=== PATIENT | male | born 1945 | race Caucasian/White ===

== ENCOUNTER 2017-01-10 21:29 | Observation (INO) | payer OTHER ==
[2017-01-10 22:17] LABS: BASOPHIL 0.9 % (0-2.0); EOSINOPHIL 5.5 % (0-4.5); MCH 29.7 pg (25.7-33.7); MCHC 33.3 g/dl (32.0-35.9); MEAN CELL VOLUME 89.2 fl (80-96); MEAN PLT VOLUME 10.3 fl (7.5-11.1); NEUTROPHILS 52.7 % (42.8-82.8); PLATELET COUNT 186 K/MM3 (134-434); RDW 14.9 % (11.9-15.9)
--- NOTE | 2017-01-10 22:26 | PDOC ---
History of Present Illness - General History Source: Patient Exam Limitations: No Limitations <Petar Hirsch - Last Filed: 01/10/17 23:30> - General History Source: Patient Exam Limitations: No Limitations <Onel Lazo - Last Filed: 01/11/17 01:52> - General Chief Complaint: Chest Pain Stated Complaint: CHEST PAIN Time Seen by Provider: 01/10/17 21:44 - History of Present Illness Initial Comments: 01/10/17 23:30 The patient is a 71 year old male brought via EMS, with a significant past medical history of COPD, hypercholesterolemia, diabetes, HTN, chronic low back pain and thyroid disease, who presents to the emergency department with chest pain and left arm pain onset at 3pm today. He describes the chest pain as mild, rating it a 3/10 in severity, with radiation to this left upper extremity. He denies any modifying factors. He describes the arm pain as severe, and notes that the pain is exacerbated with movement. He denies lifting any heavy objects or recent falls. The patients last fall was 1 month, when he fell out of bed. He came to the ED for evaluation, got a head CT which was within normal limits and was discharged same day. He reports that the pain causes him to experience dizziness. He notes that he has been having trouble breathing at night and when climbing stairs. He can climb 5 steps before having to stop. He reports that his last stress test was over 5 years ago and was normal. On route EMS gave the patient Nitro and Aspirin 324 mg which the patient reports helped relieve some of the pain. The patient denies shortness of breath, headache. Denies fever, chills, nausea, vomit, diarrhea and constipation. Denies dysuria, frequency, urgency and hematuria. Allergies: Penicillins Past surgical history: Hernia repair (x2) Social history: Former smoker. No alcohol or drug use reported PMD - Dr. Elizabet Wheat (Petar Hirsch) Past History <Petar Hirsch - Last Filed: 01/10/17 23:30> - Past Medical History COPD: Yes Diabetes: Yes (NIDDM) HTN: Yes Thyroid Disease: Yes - Surgical History GI Surgery: Yes (hernia repair x 2) - Psycho/Social/Smoking Cessation Hx Anxiety: No Suicidal Ideation: No Smoking Status: Yes Smoking History: Former smoker Number of Cigarettes Smoked Daily: 5 Information on smoking cessation initiated: No 'Breaking Loose' booklet given: 05/02/13 Hx Alcohol Use: No Drug/Substance Use Hx: No Substance Use Type: None Hx Substance Use Treatment: No <Onel Lazo - Last Filed: 01/11/17 01:52> - Past Medical History Allergies/Adverse Reactions: Allergies Allergy/AdvReac Type Severity Reaction Status Date / Time Penicillins Allergy Unknown Verified 10/19/14 16:44 Home Medications: Ambulatory Orders Amlodipine Besylate [Norvasc -] 5 mg PO DAILY #0 tablet 04/22/13 Hydrochlorothiazide [Hctz -] 12.5 mg PO DAILY #0 cap 04/22/13 Metformin HCl [Glucophage -] 500 mg PO BID #0 tablet 04/22/13 Sitagliptin Phosphate [Januvia] 100 mg PO DAILY #0 tablet 04/22/13 Aspirin [ASA -] 81 mg PO DAILY 01/10/17 Atorvastatin Ca [Lipitor] 10 mg PO HS 01/10/17 Levothyroxine [Synthroid -] 100 mcg PO DAILY 01/10/17 Memantine HCl [Namenda -] 5 mg PO DAILY 01/10/17 Tamsulosin HCl [Flomax] 0.4 mg PO DAILY 01/10/17 Review of Systems - Review of Systems Able to Perform ROS?: Yes <Petar Hirsch - Last Filed: 01/10/17 23:30> <Onel Lazo - Last Filed: 01/11/17 01:52> - Review of Systems Comments:: 01/10/17 23:31 CONSTITUTIONAL: No reported: Fever, Chills, Diaphoresis, Generalized Weakness, Malaise, Loss of Appetite HEENT: No reported: Rhinorrhea, Nasal Congestion, Throat Pain, Throat Swelling, Difficulty Swallowing, Mouth Swelling, Ear Pain, Eye Pain, Visual Changes CARDIOVASCULAR: Reported: Chest pain No reported: Syncope, Palpitations, Irregular Heart Rate, Lightheadedness, Peripheral Edema RESPIRATORY: No reported: Cough, Shortness of Breath, SOB with Exertion, Orthopnea, Wheezing , Stridor, Hemoptysis GASTROINTESTINAL: No reported: Abdominal pain, Abdominal Distension, Nausea, Vomiting, Diarrhea, Constipation, Melena, Hematochezia GENITOURINARY: No reported: Dysuria, Frequency, Urgency, Hesitancy, Flank Pain, Genital Pain MUSCULOSKELETAL: No reported: Myalgia, Arthralgia, Joint Swelling, Back pain, Neck Pain EXTREMITIES: Reported: Left arm pain. SKIN: No reported: Rash, Itching, Pallor HEMEATOLOGIC/IMMUNOLOGIC: No reported: Easy Bleeding, Easy Bruising, Lymphadenopathy, Frequent infections ENDOCRINE: No reported: Unexplained Weight Gain, Unexplained Weight Loss, Heat Intolerance , Cold Intolerance NEUROLOGIC: Reported: Dizziness. No reported: Headache, Focal Weakness, Paresthesias, Unsteady Gait, Seizure, Mental Status Changes, Incontinence PSYCHIATRIC: No reported: Anxiety, Depression (Petar Hirsch) *Physical Exam <Petar Hirsch - Last Filed: 01/10/17 23:30> <Onel Lazo - Last Filed: 01/11/17 01:52> - Vital Signs Last Vital Signs Temp Pulse Resp BP Pulse Ox 97.8 F 67 16 136/86 97 01/10/17 21:48 01/10/17 23:14 01/10/17 23:14 01/10/17 23:14 01/10/17 23:14 - Physical Exam Comments: 01/10/17 23:31 GENERAL: The patient is awake, alert, and fully oriented, Nontoxic - in no acute distress. HEAD: Normocephalic, atraumatic. EYES: extraocular movements intact, sclera anicteric, conjunctiva clear. ENT: Normal voice, Moist mucous membranes. NECK: Normal range of motion, supple LUNGS: (+) Bibasilar rales. Breath sounds equal. No wheezes, no rhonchi. HEART: Regular rate and rhythm, without murmur, rub or gallop. ABDOMEN: Soft, nontender, normoactive bowel sounds. No guarding, no rebound.No CVA tenderness EXTREMITIES: Normal range of motion, no edema. No clubbing or cyanosis. No cords, erythema, or tenderness. NEUROLOGICAL: No facial assymetry, Normal speech, PSYCH: Normal mood, normal affect. SKIN: Warm, Dry, normal turgor (Petar Hirsch) Heart Score/ECG Review <Petar Hirsch - Last Filed: 01/10/17 23:30> - History History: Slightly suspicious - Electrocardiogram EKG: Normal - Age Age: >/= 65 - Risk Factors Risk Factors Heart Score: Yes Hx Hypercholesterolemia, Yes Hx Hypertension, Yes Hx Diabetes Based on the list above the patient has:: >/=3 risk factors or Hx atherosclerotic disease - Troponin Troponin: </= normal limit - Score Heart Score - Total: 4 <Onel Lazo - Last Filed: 01/11/17 01:52> - ECG Impressions Comment:: 01/10/17 22:35 Twelve-lead EKG was performed and reviewed by me. There is normal sinus rhythm with a normal rate. Rate of 73 The axis is normal. The intervals are normal. There is normal R wave progression There are no ST or T wave abnormalities. Impression: Normal twelve-lead EKG (Onel Lazo) ED Treatment Course - LABORATORY CBC & Chemistry Diagram: 01/10/17 22:00 01/10/17 22:00 <Petar Hirsch - Last Filed: 01/10/17 23:30> - LABORATORY CBC & Chemistry Diagram: 01/10/17 22:00 01/10/17 22:00 <Onel Lazo - Last Filed: 01/11/17 01:52> - ADDITIONAL ORDERS Additional order review: Laboratory Results 01/10/17 01/10/17 22:00 22:00 Sodium 138 Potassium 4.2 Chloride 104 Carbon Dioxide 27 Anion Gap 7 L BUN 15 D Creatinine 1.1 Creat Clearance w eGFR > 60 Random Glucose 114 H Calcium 8.5 Total Bilirubin 0.3 AST 40 H ALT 53 D Alkaline Phosphatase 104 Creatine Kinase 199 Creatine Kinase Index 1.4 CK-MB (CK-2) 2.949 Troponin I 0.05 B-Natriuretic Peptide 11.03 Total Protein 7.4 Albumin 3.4 01/10/17 22:00 RBC 4.20 MCV 89.2 MCHC 33.3 RDW 14.9 MPV 10.3 Neutrophils % 52.7 Lymphocytes % 28.2 D Monocytes % 12.7 H Eosinophils % 5.5 H Basophils % 0.9 - RADIOLOGY Radiology Studies Ordered: Category Date Time Status CHEST X-RAY PORTABLE* [RAD] Stat Radiology 01/10/17 21:47 Taken SHOULDER-LEFT [RAD] Stat Radiology 01/10/17 23:09 Taken - Medications Given in the ED: ED Medications Discontinued Medications Generic Name Dose Route Start Last Admin Trade Name Freq PRN Reason Stop Dose Admin Acetaminophen 650 mg 01/10/17 23:09 01/10/17 23:14 Tylenol - PO 01/10/17 23:10 650 mg ONCE ONE Administration Medical Decision Making <Petar Hirsch - Last Filed: 01/10/17 23:30> <Onel Lazo - Last Filed: 01/11/17 01:52> - Medical Decision Making 01/10/17 22:07 71y M hx of htn, hl, hypothyroidism, dm, presents with complaint of L shoulder pain radiatin gto chest starting this afternoon. pain does seem worse wit movement of his arms. no associated sob, diaphoresis, n/v. pt does endorse smome exertional sob. pain improved with ntg/asa by EMS. consider possible ACS will obtain trops, labs ekg pt on monitor technician 01/11/17 01:51 labs rviewed, trop neg x 1 cxr shows mild congestive changes shoulder xray negative for fx or dislocaiton case dw [employer] Faith. agree with observation under dr. Padilla service Case discussed in detail with admitting physician including history, physical exam and ancillary studies. Admitting physician has assumed care for the patient, will follow all pending diagnostics and will complete the evaluation and treatment. (Onel Lazo) *DC/Admit/Observation/Transfer <Petar Hirsch - Last Filed: 01/10/17 23:30> - Discharge Dispostion Admit: Yes <Onel Lazo - Last Filed: 01/11/17 01:52> Diagnosis at time of Disposition: Chest pain Qualifiers: Chest pain type: unspecified Qualified Code(s): R07.9 - Chest pain, unspecified - Discharge Dispostion Condition at time of disposition: Stable Decision to Admit order Date/Time: Decision to Admit Order Category Date Time Status Decision to Admit to Hospital Routine Admission 01/11/17 01:29 Active - Referrals Referrals: Elizabet Wheat MD [Primary Care Provider] - - Attestations Scribe Attestion: 01/10/17 23:31 Documentation prepared by Petar Hirsch, acting as rn medical surgical for Onel Lazo MD (Petar Hirsch)
[2017-01-10 22:39] LABS: ALBUMIN 3.4 g/dl (3.4-5.0); ANION GAP 7 (8-16); BILIRUBIN,TOTAL 0.3 mg/dL (0.2-1.0); CALCIUM 8.5 mg/dL (8.5-10.1); CO2 27 mmol/L (21-32); CREATININE 1.1 mg/dL (0.7-1.3); GLUCOSE,RANDOM 114 mg/dL (74-106); SGOT/AST 40 U/L (15-37); SGPT/ALT 53 U/L (12-78); TOT PROT 7.4 g/dl (6.4-8.2)
[2017-01-10 22:42] LABS: ALK PHOS 104 U/L (45-117); CPK 199 IU/L (39-308); TROPONIN I 0.05 ng/ml (0.00-0.05)
[2017-01-10] MEDS ORDERED: ACETAMINOPHEN 325 MG TABLET (FP) PO ONE (23:09)
[2017-01-10] MEDS ORDERED: ACETAMINOPHEN 325 MG TABLET (FP) ONE (23:11)
[2017-01-11] MEDS ORDERED: FUROSEMIDE 40 MG/4 ML INJECTABLE VIAL IVPUSH ONE (02:16)
[2017-01-11] MEDS ORDERED: FUROSEMIDE 40 MG/4 ML INJECTABLE VIAL ONE (02:34)
--- NOTE | 2017-01-11 03:18 | HP ---
CHIEF COMPLAINT: chest pain, left shoulder pain PCP: Jarret HISTORY OF PRESENT ILLNESS: This is a 71 year old male with a past medical history of HTN, HLD, DM, COPD, hypothyroid who presented to the ED with left elbow, shoulder and chest pain since 3pm. He denies any recent injury to arm. Pt received NTG and 324mg ASA in ambulance and felt better. On exam, pt states that pain is completely resolved. He does report SOB at night when sleeping and when walking up stairs. ER course was notable for: (1) troponin negative (2) CXR consistent with vascular congestion (3) pain completely resolved after tylenol 650 PAST MEDICAL HISTORY: HTN HLD DM COPD hypothyroid PAST SURGICAL HISTORY: hernia repair Social History: Smoking: former Alcohol: occ beer Drugs: none Allergies Penicillins Allergy (Unknown, Verified 10/19/14 16:44) HOME MEDICATIONS: 3 Medication Instructions Recorded Amlodipine Besylate [Norvasc -] 5 mg PO DAILY #0 tablet 04/22/13 Hydrochlorothiazide [Hctz -] 12.5 mg PO DAILY #0 cap 04/22/13 Metformin HCl [Glucophage -] 500 mg PO BID #0 tablet 04/22/13 Sitagliptin Phosphate [Januvia] 100 mg PO DAILY #0 tablet 04/22/13 Aspirin [ASA -] 81 mg PO DAILY 01/10/17 Atorvastatin Ca [Lipitor] 10 mg PO HS 01/10/17 Levothyroxine [Synthroid -] 100 mcg PO DAILY 01/10/17 Memantine HCl [Namenda -] 5 mg PO DAILY 01/10/17 Tamsulosin HCl [Flomax] 0.4 mg PO DAILY 01/10/17 REVIEW OF SYSTEMS CONSTITUTIONAL: Absent: fever, chills, diaphoresis, generalized weakness, malaise, loss of appetite, weight change HEENT: Absent: rhinorrhea, nasal congestion, throat pain, throat swelling, difficulty swallowing, mouth swelling, ear pain, eye pain, visual changes CARDIOVASCULAR: Present: chest pain Absent: syncope, palpitations, irregular heart rate, lightheadedness, peripheral edema RESPIRATORY: Present: shortness of breath, dyspnea with exertion, orthopnea Absent: cough, wheezing, stridor, hemoptysis GASTROINTESTINAL: Absent: abdominal pain, abdominal distension, nausea, vomiting, diarrhea, constipation, melena, hematochezia GENITOURINARY: Absent: dysuria, frequency, urgency, hesitancy, hematuria, flank pain, genital pain MUSCULOSKELETAL: Absent: myalgia, arthralgia, joint swelling, back pain, neck pain SKIN: Absent: rash, itching, pallor HEMATOLOGIC/IMMUNOLOGIC: Absent: easy bleeding, easy bruising, lymphadenopathy, frequent infections ENDOCRINE: Absent: unexplained weight gain, unexplained weight loss, heat intolerance, cold intolerance NEUROLOGIC: Absent: headache, focal weakness or paresthesias, dizziness, unsteady gait, seizure, mental status changes, bladder or bowel incontinence PSYCHIATRIC: Absent: anxiety, depression, suicidal or homicidal ideation, hallucinations. PHYSICAL EXAMINATION Vital Signs - 24 hr 3 01/10/17 01/10/17 21:48 23:14 Temperature 97.8 F Pulse Rate 78 Pulse Rate [ 67 Apical] Respiratory 22 16 Rate Blood Pressure 134/80 Blood Pressure 136/86 [Arm] O2 Sat by Pulse 98 97 Oximetry (%) GENERAL: Awake, alert, and fully oriented, in no acute distress. HEAD: Normal with no signs of trauma. EYES: Pupils equal, round and reactive to light, extraocular movements intact, sclera anicteric, conjunctiva clear. No lid lag. EARS, NOSE, THROAT: Ears normal, nares patent, oropharynx clear without exudates. Moist mucous membranes. NECK: Normal range of motion, supple without lymphadenopathy, JVD, or masses. LUNGS: Crackles R lung field, 1/3 way up, left base. No accessory muscle use. HEART: Regular rate and rhythm, normal S1 and S2 without murmur, rub or gallop. ABDOMEN: Soft, nontender, not distended, normoactive bowel sounds, no guarding, no rebound, no masses. No hepatomegaly or splenomegaly. MUSCULOSKELETAL: Normal range of motion at all joints. No bony deformities or tenderness. No CVA tenderness. UPPER EXTREMITIES: 2+ pulses, warm, well-perfused. No cyanosis. No clubbing. No peripheral edema. no pain on ROM left shoulder or elbow LOWER EXTREMITIES: 2+ pulses, warm, well-perfused. No calf tenderness. No peripheral edema. NEUROLOGICAL: Cranial nerves II-XII intact. Normal speech. Normal gait. PSYCHIATRIC: Cooperative. Good eye contact. Appropriate mood and affect. SKIN: Warm, dry, normal turgor, no rashes or lesions noted, normal capillary refill. Laboratory Results - last 24 hr 3 01/10/17 01/10/17 01/10/17 22:00 22:00 22:00 WBC 8.0 RBC 4.20 Hgb 12.5 Hct 37.5 MCV 89.2 MCH 29.7 MCHC 33.3 RDW 14.9 Plt Count 186 MPV 10.3 Neutrophils % 52.7 Lymphocytes % 28.2 D Monocytes % 12.7 H Eosinophils % 5.5 H Basophils % 0.9 Sodium 138 Potassium 4.2 Chloride 104 Carbon Dioxide 27 Anion Gap 7 L BUN 15 D Creatinine 1.1 Creat Clearance w eGFR > 60 Random Glucose 114 H Calcium 8.5 Total Bilirubin 0.3 AST 40 H ALT 53 D Alkaline Phosphatase 104 Creatine Kinase 199 Creatine Kinase Index 1.4 CK-MB (CK-2) 2.949 Troponin I 0.05 B-Natriuretic Peptide 11.03 Total Protein 7.4 Albumin 3.4 ECG normal sinus rhythma vent rate 73, QTC [address]/T changes Radiology Results Chest xray, portable: final read pending, increased pulmonary vascular congestion, haziness of the costophrenic angles bilaterally ASSESSMENT/PLAN: 71yM with PMH HTN, HLD, DM, COPD, hypothyroid presented to the ED with left sided chest pain, shoulder and elbow pain today. He is being admitted for further observation and testing. Chest pain - Heart score 4, age and risk factors - tele monitoring - trend troponins, neg x1 CHF - CXR and crackles c/w CHF despite normal BNP - lasix 40mg IVP x 1 - consider echo, may be done as outpatient HTN - cont home medications HLD - cont home lipitor, PCP to monitor lipids hypothyroid - cont synthroid DM - hold oral hypoglycemics, sliding scale for now DVT PPX - low risk as expected LOS <48h, reevaluate if LOS is greater FEN - tolerating po fluids - repeat BMP in am with 3rd troponin - diabetic/low sodium diet. Dispo: Pt currently requires inpatient monitoring for management of his emergent condition. Visit type - Emergency Visit Emergency Visit: Yes ED Registration Date: 01/10/17 Care time: The patient presented to the Emergency Department on the above date and was hospitalized for further evaluation of their emergent condition. - New Patient This patient is new to me today: Yes Date on this admission: 01/11/17 - Critical Care Critical Care patient: No
[2017-01-11 04:20] LABS: TROPONIN I 0.06 ng/ml (0.00-0.05)
[2017-01-11 06:27] VITALS: BMI 26.3
[2017-01-11] MEDS ORDERED: INSULIN SLIDING SCALE (NOVOLOG) 1 VIAL SQ SCH (07:00)
[2017-01-11] MEDS ORDERED: LEVOTHYROXINE NA 100 MCG TABLET (FP) PO SCH (07:00)
[2017-01-11] MEDS: HYDROCHLOROTHIAZIDE 12.5 MG CAPSULE (FP) PO SCH (09:09)
[2017-01-11] MEDS: ASPIRIN 81 MG CHEWABLE TABLETS PO SCH (09:09)
[2017-01-11] MEDS: amLODIPine BESYLATE 5 MG TABLET (FP) PO SCH (09:09)
[2017-01-11] MEDS: MEMANTINE HCL 5 MG TABLET (UD) PO SCH (09:09)
[2017-01-11] MEDS: TAMSULOSIN HCL 0.4 MG CAP.ER.24H (FP) PO SCH (09:09)
--- NOTE | 2017-01-11 09:22 | CON.CARD ---
Consult Consult Specialty:: Cardiology for [facility] Referred by:: Hospitalist Reason for Consultation:: chest pain and CHF - History of Present Illness Chief Complaint: HURLEY x 3 months and Left shoulder pain History of Present Illness: 71M HTN, HL, DM presents to ER w/ 3 months progressive HURLEY and several days of left shoulder pain radiating to chest. HE describes SOB w/ exertion, no exertional CP. No palps. Occasional LE edema. His left shoulder pain seems musculoskeletal, described as worse with positional change. CXR shows cardiomegaly and increased PVC. - History Source History Provided By: Patient (in Bulgarian) Limitations to Obtaining History: No Limitations - Past Medical History Cardio/Vascular: Yes: HTN, Hyperlipdemia, Other (mitral regurgitation) Pulmonary: Yes: COPD, Pneumonia (hx of) Endocrine: Yes: Diabetes Mellitus, Hypothyroidism - Alcohol/Substance Use Hx Alcohol Use: No - Smoking History Smoking history: Former smoker Have you smoked in the past 12 months: Yes Aproximately how many cigarettes per day: 20 If you are a former smoker, when did you quit?: 06/2016 - Social History Usual Living Arrangement: Alone ADL: Independent History of Recent Travel: No Home Medications - Allergies Allergies/Adverse Reactions: Allergies Allergy/AdvReac Type Severity Reaction Status Date / Time Penicillins Allergy Unknown Verified 10/19/14 16:44 - Home Medications Home Medications: Ambulatory Orders Amlodipine Besylate [Norvasc -] 5 mg PO DAILY #0 tablet 04/22/13 Hydrochlorothiazide [Hctz -] 12.5 mg PO DAILY #0 cap 04/22/13 Metformin HCl [Glucophage -] 500 mg PO BID #0 tablet 04/22/13 Sitagliptin Phosphate [Januvia] 100 mg PO DAILY #0 tablet 04/22/13 Aspirin [ASA -] 81 mg PO DAILY 01/10/17 Atorvastatin Ca [Lipitor] 10 mg PO HS 01/10/17 Levothyroxine [Synthroid -] 100 mcg PO DAILY 01/10/17 Memantine HCl [Namenda -] 5 mg PO DAILY 01/10/17 Tamsulosin HCl [Flomax] 0.4 mg PO DAILY 01/10/17 Family Disease History - Family Disease History Family History: Unremarkable (non contributory) Review of Systems Findings/Remarks: see HPI - Review of Systems Cardiovascular: reports: Chest Pain, Edema, Shortness of Breath Respiratory: reports: Exercise Intolerance, SOB Gastrointestinal: reports: No Symptoms Neurological: reports: No Symptoms Endocrine: reports: No Symptoms Hematology/Lymphatic: reports: No Symptoms Psychiatric: reports: No Symptoms - Risk Factors Known Risk Factors: Yes: Diabetes Mellitus, Hypercholesterolemia, Hypertension, Smoking Vital Signs: Vital Signs Temperature 97.6 F 01/11/17 06:18 Pulse Rate 70 01/11/17 06:18 Respiratory Rate 18 01/11/17 06:18 Blood Pressure 127/78 01/11/17 06:18 O2 Sat by Pulse Oximetry (%) 95 01/11/17 03:00 Constitutional: Yes: No Distress, Calm Respiratory: Yes: Other (bibasilar rales) Gastrointestinal: Yes: Soft JVD: No Carotid Bruit: No Heart Sounds: Yes: S1, S2 (RRR, no murmurs) Edema: No Peripheral Pulses WNL: Yes Neurological: Yes: Alert, Oriented ...Motor Strength: WNL Psychiatric: Yes: Alert, Oriented - Other Data Labs, Other Data: Troponin, BNP 01/11/17 03:35 Troponin I 0.06 H Troponin, BNP 01/11/17 03:35 Troponin I 0.06 H Laboratory Tests 01/10/17 01/10/17 01/11/17 22:00 22:00 03:35 WBC 8.0 Hgb 12.5 Plt Count 186 Creatine Kinase 199 217 Troponin I 0.05 0.06 H VALERIE 73bpm/ no acute ST changes Echo: Pending Imaging - Results Chest X-ray: Image Reviewed (chf) EKG: Image Reviewed Problem List - Problems (1) Chest pain Code(s): R07.9 - CHEST PAIN, UNSPECIFIED Qualifiers: Chest pain type: unspecified Qualified Code(s): R07.9 - Chest pain, unspecified (2) CHF (congestive heart failure) Code(s): I50.9 - HEART FAILURE, UNSPECIFIED Qualifiers: Congestive heart failure type: unspecified congestive heart failure type (3) Abnormal CXR Code(s): R93.8 - ABNORMAL FINDINGS ON DIAGNOSTIC IMAGING OF BODY STRUCTURES (4) Diabetes Code(s): E11.9 - TYPE 2 DIABETES MELLITUS WITHOUT COMPLICATIONS Qualifiers: Diabetes mellitus type: type 2 Assessment/Plan IMP: Dyspnea on exertion Chest pain syndrome with typical and atypical features Multiple cardiac risk factors REC: 1. Dyspnea: -clinically improved after one dose IV Lasix, and CXR appears to show increased PVC -Continue PO Lasix -Chest CT without contrast to assess for parenchymal lung dz (?ILD): BNP of 11 is puzzling in light of clinical response to lasix and what appears to be radiographic CHF -Obtain 3rd cardiac enzyme -Echo for EF assessment 2. Chest pain:multiple CV risk factors. -Patient's description appears to be somewhat atypical with primarily shoulder pain, worse with positional change. -Has not had exertional CP -ECG without ischemic changes -Cont ASA -Echo -Complete MIL[place]RO -Will need ischemic evaluation prior to discharge
[2017-01-11 09:52] LABS: BASOPHIL 0.8 % (0-2.0); EOSINOPHIL 5.3 % (0-4.5); MCH 29.2 pg (25.7-33.7); MCHC 32.9 g/dl (32.0-35.9); MEAN CELL VOLUME 88.6 fl (80-96); MEAN PLT VOLUME 9.8 fl (7.5-11.1); NEUTROPHILS 57.3 % (42.8-82.8); PLATELET COUNT 178 K/MM3 (134-434); RDW 15.1 % (11.9-15.9)
[2017-01-11] MEDS ORDERED: FUROSEMIDE 40 MG/4 ML INJECTABLE VIAL IVPB SCH (10:00)
[2017-01-11 10:23] LABS: ALBUMIN 3.6 g/dl (3.4-5.0); ALK PHOS 110 U/L (45-117); ANION GAP 7 (8-16); BILIRUBIN,TOTAL 0.3 mg/dL (0.2-1.0); CALCIUM 9.3 mg/dL (8.5-10.1); CO2 29 mmol/L (21-32); CREATININE 1.1 mg/dL (0.7-1.3); GLUCOSE,RANDOM 153 mg/dL (74-106); SGOT/AST 48 U/L (15-37); SGPT/ALT 59 U/L (12-78); TOT PROT 7.9 g/dl (6.4-8.2)
[2017-01-11 10:24] LABS: ANION GAP 8 (8-16); CO2 29 mmol/L (21-32); CREATININE 1.1 mg/dL (0.7-1.3); GLUCOSE,RANDOM 148 mg/dL (74-106); MAGNESIUM 2.1 mg/dL (1.8-2.4); PHOSPHOROUS 3.3 mg/dL (2.5-4.9)
[2017-01-11 10:27] LABS: CPK 196 IU/L (39-308); TROPONIN I 0.06 ng/ml (0.00-0.05)
--- NOTE | 2017-01-11 10:41 | PN ---
Physical Exam: SUBJECTIVE: Patient seen and examined at the bedside. Denies chest pain now but still has left shoulder pain. Denies shortness of breath, tolerating room air OBJECTIVE: NSR on property assessment monitor Shoulder xray negative for fracture Trop: 0.05>0.06>0.06 lipid panel and hmga1c pending Vital Signs Period Temp Pulse Resp BP Sys/Loera Pulse Ox Last 24 Hr 97.6 F-98 F 68-103 18-18 127-138/74-87 92-96 GENERAL: The patient is awake, alert, and fully oriented, in no acute distress. HEAD: Normal with no signs of trauma. EYES: PERRL, extraocular movements intact, sclera anicteric, conjunctiva clear. No ptosis. ENT: Ears normal, nares patent, oropharynx clear without exudates, moist mucous membranes. NECK: Trachea midline, full range of motion, supple. LUNGS: +crackles on right lung base, left lung clear to auscultation HEART: Regular rate and rhythm, NSR on property assessment monitor ABDOMEN: Soft, nontender, nondistended, normoactive bowel sounds, no guarding, no rebound, no hepatosplenomegaly, no masses. EXTREMITIES: trace non pitting edema on both ankles NEUROLOGICAL: Normal speech, gait not observed. PSYCH: Normal mood, normal affect. SKIN: Warm, dry, normal turgor, no rashes or lesions noted Laboratory Results - last 24 hr 01/11/17 01/11/17 01/11/17 03:35 07:04 09:40 WBC 7.0 RBC 4.62 Hgb 13.5 Hct 40.9 MCV 88.6 MCH 29.2 MCHC 32.9 RDW 15.1 Plt Count 178 MPV 9.8 Neutrophils % 57.3 Lymphocytes % 25.8 Monocytes % 10.8 H Eosinophils % 5.3 H Basophils % 0.8 Sodium Potassium Chloride Carbon Dioxide Anion Gap BUN Creatinine Creat Clearance w eGFR POC Glucometer 108 Random Glucose Calcium Phosphorus Magnesium Total Bilirubin AST ALT Alkaline Phosphatase Creatine Kinase 217 Creatine Kinase Index 1.3 CK-MB (CK-2) 2.898 Troponin I 0.06 H Total Protein Albumin 01/11/17 01/11/17 09:40 09:40 WBC RBC Hgb Hct MCV MCH MCHC RDW Plt Count MPV Neutrophils % Lymphocytes % Monocytes % Eosinophils % Basophils % Sodium 136 135 L Potassium 4.1 4.1 Chloride 99 99 Carbon Dioxide 29 29 Anion Gap 8 7 L BUN 17 17 Creatinine 1.1 1.1 Creat Clearance w eGFR > 60 POC Glucometer Random Glucose 148 H D 153 H Calcium 9.0 9.3 Phosphorus 3.3 Magnesium 2.1 Total Bilirubin 0.3 AST 48 H ALT 59 Alkaline Phosphatase 110 Creatine Kinase 196 Creatine Kinase Index CK-MB (CK-2) Troponin I 0.06 H Total Protein 7.9 Albumin 3.6 Active Medications Generic Name Dose Route Start Last Admin Trade Name Macario PRN Reason Stop Dose Admin Amlodipine Besylate 5 mg 01/11/17 10:00 01/11/17 09:09 Norvasc - PO 5 mg DAILY YAEL Administration Aspirin 81 mg 01/11/17 10:00 01/11/17 09:09 Asa - PO 81 mg DAILY YAEL Administration Atorvastatin Calcium 10 mg 01/11/17 22:00 Lipitor - PO HS [facility] Furosemide 40 mg 01/11/17 10:00 Lasix - PO DAILY [facility] Hydrochlorothiazide 12.5 mg 01/11/17 10:00 01/11/17 09:09 Hctz - PO 12.5 mg DAILY YAEL Administration Insulin Aspart 1 vial 01/11/17 10:38 Novolog Vial Sliding Scale - SQ TIDAC [facility] Protocol Levothyroxine Sodium 100 mcg 01/11/17 07:00 01/11/17 07:05 Synthroid - PO 100 mcg DAILY@0700 [facility] Administration Memantine 5 mg 01/11/17 10:00 01/11/17 09:09 Namenda - PO 5 mg DAILY YAEL Administration Tamsulosin HCl 0.4 mg 01/11/17 08:30 01/11/17 09:09 Flomax - PO 0.4 mg DAILY@0830 [facility] Administration ASSESSMENT/PLAN: Patient is a 71 year old male with a significant past medical history of hypertension, hyperlipidemia, DM, COPD, and hypothyroidism. He presented to the ER on 01/11/2017 with complaints of left sided shoulder and elbow pain that radiated to this chest. He is admitted under observation for further testing. Imaging: Chest CT 01/11/2017: Interstitial lung disease, +cardiomegaly, cannot exclude superimposed CHF. Chest xray 01/10/2017: Large heart with extensive congestive changes and some pleural fluid Cardiology: Chest pain - acute A/P: Chest pain from left shoulder to left chest Multiple risk factors: age, hypertensive hx, diabetes, hypothyroidism and hyperlipidemia Continue telemonitoring Troponins 0.05 0.06>0.06 EKG NSR with no significant changes from previous BNP not elevated Monitor daily weights and intake and output Congestive Heart Failure A/P: Increased congestion on chest xray Started on Lasix 40mg IV daily Echo ordered by cardiology Hypertension A/P: On Amlodopine 5mg daily, HCTZ 12.5 daily Monitor BP Hyperlipidemia A/P: Lipid panel reviewed, on home Lipitor 10mg Pulmonary: Shortness of breath - acute A/P: Chest xray with evidence of congestion Chest CT shows interstitial lung disease, +cardiomegaly Cannot exclude superimposed CHF Pulmonary following Endocrine: Hypothyroid A/P: On syntrhoid 100mcg at home, last TSH on 11/29/16 was 9.72, TSH today 6.94 Increased Synthroid to 112mcg daily, will need repeat TSH in 6 weeks Diabetes Mellitus A/P: On sliding scale, monitor BGMs hmga1c 7.2, follow up outpatient with PCP, Prophylaxis: GI: deferred DVT: SCDs, ambulation F.E.N. Fluids: tolerating PO Electrolytes: monitor on Lasix Nutrition: diabetic low sodium diet Disposition: Pt currently requires inpatient monitoring for management of his emergent condition. Full Code Visit type - Emergency Visit Emergency Visit: Yes ED Registration Date: 01/11/17 Care time: The patient presented to the Emergency Department on the above date and was hospitalized for further evaluation of their emergent condition. - New Patient This patient is new to me today: Yes Date on this admission: 01/11/17 - Critical Care Critical Care patient: No - Discharge Referral Referred to [facility] No
[2017-01-11] MEDS ORDERED: ALBUTEROL SO4 2.5/IPRATROPIUM 0.5 INH SOL 3 ML VIAL.NEB. NEB PRN (10:45)
[2017-01-11] MEDS: FUROSEMIDE 40 MG TABLET (FP) PO SCH (10:47)
[2017-01-11 11:31] LABS: CHOLESTEROL 154 mg/dL (50-200); LDL CHOLESTEROL (ONLY SJRH) 99 mg/dL (5-100)
[2017-01-11] MEDS: LIDOCAINE 5% TOPICAL PATCH TP SCH (12:34)
[2017-01-11] MEDS: INSULIN SLIDING SCALE (NOVOLOG) 1 VIAL SQ SCH ×2 (12:35→17:17)
--- NOTE | 2017-01-11 13:26 | EKG ---
Test Reason : Blood Pressure : / mmHG Vent. Rate : 073 BPM Atrial Rate : 073 BPM P-R Int : 208 ms QRS Dur : 088 ms QT Int : 372 ms P-R-T Axes : 046 009 042 degrees QTc Int : 409 ms NORMAL SINUS RHYTHM NORMAL ECG WHEN COMPARED WITH ECG OF 02-MAY-2013 17:49, NO SIGNIFICANT CHANGE WAS FOUND Confirmed by TRUE GUEVARA MD ([id number]) on 01/11/2017 1:26:11 PM Referred By: Confirmed By:TRUE GUEVARA MD
--- NOTE | 2017-01-11 15:46 | CON.PULM ---
Consult Consult Specialty:: PULM/CCM Referred by:: DAWN Reason for Consultation:: SOB - History of Present Illness Chief Complaint: SOB History of Present Illness: 71 M, with listed medical history. COPD from previous smoking. Previous imaging from [facility] in 2014 revealed diffuse ILD. With the help of a mortgage lender the patient informed me that he has never been told that he has an issue with is lungs. 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 No previous history of lung biopsy. No fever or chills. No hemoptysis. CT : Diffuse ILD somewhat progressed from CT in 2015. - History Source History Provided By: Patient Limitations to Obtaining History: Language Barrier - Past Medical History Cardio/Vascular: Yes: HTN, Hyperlipdemia, Other (mitral regurgitation) Pulmonary: Yes: COPD, Pneumonia (hx of) Endocrine: Yes: Diabetes Mellitus, Hypothyroidism - Alcohol/Substance Use Hx Alcohol Use: No - Smoking History Smoking history: Former smoker Have you smoked in the past 12 months: Yes Aproximately how many cigarettes per day: 20 If you are a former smoker, when did you quit?: 06/2016 - Social History Usual Living Arrangement: Alone ADL: Independent History of Recent Travel: No Home Medications - Allergies Allergies/Adverse Reactions: Allergies Allergy/AdvReac Type Severity Reaction Status Date / Time Penicillins Allergy Unknown Verified 10/19/14 16:44 - Home Medications Home Medications: Ambulatory Orders Amlodipine Besylate [Norvasc -] 5 mg PO DAILY #0 tablet 04/22/13 Hydrochlorothiazide [Hctz -] 12.5 mg PO DAILY #0 cap 04/22/13 Metformin HCl [Glucophage -] 500 mg PO BID #0 tablet 04/22/13 Sitagliptin Phosphate [Januvia] 100 mg PO DAILY #0 tablet 04/22/13 Aspirin [ASA -] 81 mg PO DAILY 01/10/17 Atorvastatin Ca [Lipitor] 10 mg PO HS 01/10/17 Levothyroxine [Synthroid -] 100 mcg PO DAILY 01/10/17 Memantine HCl [Namenda -] 5 mg PO DAILY 01/10/17 Tamsulosin HCl [Flomax] 0.4 mg PO DAILY 01/10/17 Review of Systems - Review of Systems Constitutional: denies: Chills, Fever, Loss of Appetite, Malaise, Night Sweats, Unintentional Wgt. Loss Eyes: reports: No Symptoms HENT: reports: No Symptoms Neck: reports: No Symptoms Cardiovascular: reports: Shortness of Breath. denies: Chest Pain, Edema, Palpitations Respiratory: reports: Cough, SOB, SOB on Exertion. denies: Hemoptysis, Wheezing Gastrointestinal: reports: No Symptoms Genitourinary: reports: No Symptoms Breasts: reports: No Symptoms Reported Musculoskeletal: reports: No Symptoms Integumentary: reports: No Symptoms Neurological: reports: No Symptoms Endocrine: reports: No Symptoms Hematology/Lymphatic: reports: No Symptoms Psychiatric: reports: No Symptoms Physical Exam Vital Sings: Vital Signs Temperature 97.9 F 01/11/17 14:00 Pulse Rate 81 01/11/17 14:00 Respiratory Rate 20 01/11/17 14:00 Blood Pressure 109/67 01/11/17 14:00 O2 Sat by Pulse Oximetry (%) 96 01/11/17 10:18 Constitutional: Yes: No Distress, Calm Eyes: Yes: Conjunctiva Clear, EOM Intact HENT: Yes: Atraumatic, Normocephalic Neck: Yes: Supple, Trachea Midline Cardiovascular: Yes: Regular Rate and Rhythm Respiratory: Yes: Cough, Rales, Other (coarse crackles ). No: Accessory Muscle Use, Stridor, Tachypnea, Wheezes ...Inspection: Yes: WNL ...Clubbing: Yes Gastrointestinal: Yes: Normal Bowel Sounds, Soft Renal/: Yes: WNL Breast(s): Yes: WNL Musculoskeletal: Yes: WNL Extremities: Yes: WNL Edema: No Peripheral Pulses WNL: Yes Integumentary: Yes: WNL Neurological: Yes: WNL, Alert, Oriented ...Motor Strength: WNL Psychiatric: Yes: WNL, Alert, Oriented Labs: CBC, BMP 01/11/17 09:40 01/11/17 09:40 Imaging - Results Cat Scan: Report Reviewed, Image Reviewed Problem List - Problems (1) Abnormal CXR Code(s): R93.8 - ABNORMAL FINDINGS ON DIAGNOSTIC IMAGING OF BODY STRUCTURES (2) CHF (congestive heart failure) Code(s): I50.9 - HEART FAILURE, UNSPECIFIED Qualifiers: Congestive heart failure type: unspecified congestive heart failure type (3) Diabetes Code(s): E11.9 - TYPE 2 DIABETES MELLITUS WITHOUT COMPLICATIONS Qualifiers: Diabetes mellitus type: type 2 (4) ILD (interstitial lung disease) Code(s): J84.9 - INTERSTITIAL PULMONARY DISEASE, UNSPECIFIED Assessment/Plan Diuresis as needed (likely has Pulm HTN -> Pulmonary vascular congestion) O2 as needed Patient with a chronic ILD. Seems no previous work up has been done. He is currently ambulating in the hallways and reports that he feels better since admission. There is no acute indication for systemic steroids at this time. He O2 saturation ranges from 92 to 96, so he does not require home O2. There is no Pulmonary contraindication for D/C and continue his ILD work up as an outpatient. Will follow if he remains hospitalized Dr Martinez
[2017-01-11] MEDS: ATORVASTATIN CA 10 MG TABLET (FP) PO SCH (21:23)
[2017-01-11] MEDS: LIDOCAINE PATCH REMOVAL MC SCH (21:24)
[2017-01-12] MEDS ORDERED: INSULIN (NOVOLOG) ASPART 100 UNITS/ML 10ML VIAL ONE ×2 (05:45→17:27)
[2017-01-12] MEDS: LEVOTHYROXINE NA 112 MCG TABLET (FP) PO SCH (06:14)
[2017-01-12] MEDS: INSULIN SLIDING SCALE (NOVOLOG) 1 VIAL SQ SCH ×4 (06:14→17:08)
[2017-01-12 07:22] LABS: BASOPHIL 0.4 % (0-2.0); EOSINOPHIL 4.5 % (0-4.5); MCH 29.3 pg (25.7-33.7); MCHC 32.8 g/dl (32.0-35.9); MEAN CELL VOLUME 89.3 fl (80-96); MEAN PLT VOLUME 10.3 fl (7.5-11.1); NEUTROPHILS 58.3 % (42.8-82.8); PLATELET COUNT 184 K/MM3 (134-434); RDW 14.8 % (11.9-15.9); WHITE BLOOD COUNT 9.3 K/mm3 (4.0-10.0)
[2017-01-12 07:44] LABS: ANION GAP 8 (8-16); CALCIUM 9.2 mg/dL (8.5-10.1); CO2 29 mmol/L (21-32); CREATININE 1.4 mg/dL (0.7-1.3); GLUCOSE,RANDOM 118 mg/dL (74-106); MAGNESIUM 2.4 mg/dL (1.8-2.4)
--- NOTE | 2017-01-12 08:59 | PN ---
Progress Note, Physician Chief Complaint: feeling better CT clarifies that he does have ILD - Current Medication List Current Medications: Active Medications Albuterol/Ipratropium (Duoneb -) 1 amp NEB Q6H PRN PRN Reason: SHORTNESS OF BREATH Amlodipine Besylate (Norvasc -) 5 mg PO DAILY [facility] Last Admin: 01/11/17 09:09 Dose: 5 mg Aspirin (Asa -) 81 mg PO DAILY [facility] Last Admin: 01/11/17 09:09 Dose: 81 mg Atorvastatin Calcium (Lipitor -) 10 mg PO HS [facility] Last Admin: 01/11/17 21:23 Dose: 10 mg Furosemide (Lasix -) 40 mg PO DAILY [facility] Last Admin: 01/11/17 10:47 Dose: 40 mg Hydrochlorothiazide (Hctz -) 12.5 mg PO DAILY [facility] Last Admin: 01/11/17 09:09 Dose: 12.5 mg Insulin Aspart (Novolog Vial Sliding Scale -) 1 vial SQ TIDAC [facility] PRN Reason: Protocol Last Admin: 01/12/17 06:14 Dose: Not Given Levothyroxine Sodium (Synthroid -) 112 mcg PO DAILY@0700 [facility] Last Admin: 01/12/17 06:14 Dose: 112 mcg Lidocaine (Lidoderm Patch -) 1 patch TP DAILY [facility] Last Admin: 01/11/17 12:34 Dose: 1 patch Memantine (Namenda -) 5 mg PO DAILY [facility] Last Admin: 01/11/17 09:09 Dose: 5 mg Miscellaneous (Lidoderm Patch Removal) 1 each MC DAILY@2200 [facility] Last Admin: 01/11/17 21:24 Dose: 1 each Tamsulosin HCl (Flomax -) 0.4 mg PO DAILY@0830 [facility] Last Admin: 01/11/17 09:09 Dose: 0.4 mg - Objective Vital Signs: Vital Signs Temperature 98 F 01/12/17 06:00 Pulse Rate 78 01/12/17 06:00 Respiratory Rate 18 01/12/17 06:00 Blood Pressure 134/75 01/12/17 06:00 O2 Sat by Pulse Oximetry (%) 98 01/11/17 22:21 Constitutional: Yes: Calm Cardiovascular: Yes: Regular Rate and Rhythm Respiratory: Yes: Other (dry rales) Gastrointestinal: Yes: Soft Edema: No (clubbing of fingers) Neurological: Yes: Alert Labs: CBC, BMP 01/12/17 05:35 01/12/17 05:35 Laboratory Tests 01/12/17 01/12/17 05:35 05:35 WBC 9.3 D Hct 43.5 Plt Count 184 Sodium 136 Potassium 4.3 BUN 28 H D Creatinine 1.4 H D Magnesium 2.4 - ....Imaging EKG: Image Reviewed (NSR w/ one nocturnal episode of Wenkebach) Problem List - Problems (1) Chest pain Code(s): R07.9 - CHEST PAIN, UNSPECIFIED Qualifiers: Chest pain type: unspecified Qualified Code(s): R07.9 - Chest pain, unspecified (2) CHF (congestive heart failure) Code(s): I50.9 - HEART FAILURE, UNSPECIFIED Qualifiers: Congestive heart failure type: unspecified congestive heart failure type (3) Abnormal CXR Code(s): R93.8 - ABNORMAL FINDINGS ON DIAGNOSTIC IMAGING OF BODY STRUCTURES (4) Diabetes Code(s): E11.9 - TYPE 2 DIABETES MELLITUS WITHOUT COMPLICATIONS Qualifiers: Diabetes mellitus type: type 2 Assessment/Plan IMP: Dyspnea on exertion probably predominantly due to ILD with mild superimposed CHF Chest pain syndrome with typical and atypical features Multiple cardiac risk factors REC: 1. Dyspnea: -Continue PO Lasix -Chest CT confirms moderate ILD -Echo for EF assessment and to assess for PHTN 2. Chest pain:multiple CV risk factors. -Patient's description appears to be somewhat atypical with primarily shoulder pain, worse with positional change. -Has not had exertional CP -ECG without ischemic changes -Cont ASA -Echo -Stress MIBI in AM
[2017-01-12] MEDS: ASPIRIN 81 MG CHEWABLE TABLETS PO SCH (09:35)
[2017-01-12] MEDS: MEMANTINE HCL 5 MG TABLET (UD) PO SCH (09:35)
[2017-01-12] MEDS: amLODIPine BESYLATE 5 MG TABLET (FP) PO SCH (09:35)
[2017-01-12] MEDS: TAMSULOSIN HCL 0.4 MG CAP.ER.24H (FP) PO SCH (09:35)
[2017-01-12] MEDS: HYDROCHLOROTHIAZIDE 12.5 MG CAPSULE (FP) PO SCH (09:35)
[2017-01-12] MEDS: FUROSEMIDE 40 MG TABLET (FP) PO SCH (09:35)
[2017-01-12] MEDS: LIDOCAINE 5% TOPICAL PATCH TP SCH (09:35)
--- NOTE | 2017-01-12 14:53 | PN ---
Progress Note (short form) - Note Progress Note: Ambulating in the hallway. No CP. SOB is better. Intake & Output 01/09/17 01/10/17 01/11/17 01/12/17 23:59 23:59 23:59 23:59 Intake Total 130 600 Balance 130 600 Weight 165 lb 163 lb 4 oz Last Vital Signs Temp Pulse Resp BP Pulse Ox 97.3 F L 89 20 139/80 98 01/12/17 14:44 01/12/17 14:44 01/12/17 14:44 01/12/17 14:44 01/12/17 10:00 Active Medications Albuterol/Ipratropium (Duoneb -) 1 amp NEB Q6H PRN PRN Reason: SHORTNESS OF BREATH Amlodipine Besylate (Norvasc -) 5 mg PO DAILY [facility] Last Admin: 01/12/17 09:35 Dose: 5 mg Aspirin (Asa -) 81 mg PO DAILY [facility] Last Admin: 01/12/17 09:35 Dose: 81 mg Atorvastatin Calcium (Lipitor -) 10 mg PO HS [facility] Last Admin: 01/11/17 21:23 Dose: 10 mg Furosemide (Lasix -) 40 mg PO DAILY [facility] Last Admin: 01/12/17 09:35 Dose: 40 mg Hydrochlorothiazide (Hctz -) 12.5 mg PO DAILY [facility] Last Admin: 01/12/17 09:35 Dose: 12.5 mg Insulin Aspart (Novolog Vial Sliding Scale -) 1 vial SQ TIDAC [facility] PRN Reason: Protocol Last Admin: 01/12/17 12:51 Dose: Not Given Levothyroxine Sodium (Synthroid -) 112 mcg PO DAILY@0700 [facility] Last Admin: 01/12/17 06:14 Dose: 112 mcg Lidocaine (Lidoderm Patch -) 1 patch TP DAILY [facility] Last Admin: 01/12/17 09:35 Dose: 1 patch Memantine (Namenda -) 5 mg PO DAILY [facility] Last Admin: 01/12/17 09:35 Dose: 5 mg Miscellaneous (Lidoderm Patch Removal) 1 each MC DAILY@2200 [facility] Last Admin: 01/11/17 21:24 Dose: 1 each Tamsulosin HCl (Flomax -) 0.4 mg PO DAILY@0830 [facility] Last Admin: 01/12/17 09:35 Dose: 0.4 mg Constitutional: Yes: No Distress, Calm Eyes: Yes: Conjunctiva Clear, EOM Intact HENT: Yes: Atraumatic, Normocephalic Neck: Yes: Supple, Trachea Midline Cardiovascular: Yes: Regular Rate and Rhythm Respiratory: Yes: Cough, Rales / coarse crackles. No: Accessory Muscle Use, Stridor, Tachypnea, Wheezes ...Inspection: Yes: WNL ...Clubbing: Yes Gastrointestinal: Yes: Normal Bowel Sounds, Soft Renal/: Yes: WNL Breast(s): Yes: WNL Musculoskeletal: Yes: WNL Extremities: Yes: WNL Edema: No Peripheral Pulses WNL: Yes Integumentary: Yes: WNL Neurological: Yes: WNL, Alert, Oriented ...Motor Strength: WNL Psychiatric: Yes: WNL, Alert, Oriented Labs: Laboratory Results - last 24 hr 01/11/17 01/12/17 01/12/17 17:10 05:35 05:35 WBC 9.3 D RBC 4.87 Hgb 14.3 Hct 43.5 MCV 89.3 MCH 29.3 MCHC 32.8 RDW 14.8 Plt Count 184 MPV 10.3 Neutrophils % 58.3 Lymphocytes % 22.6 Monocytes % 14.2 H Eosinophils % 4.5 Basophils % 0.4 Sodium 136 Potassium 4.3 Chloride 99 Carbon Dioxide 29 Anion Gap 8 BUN 28 H D Creatinine 1.4 H D POC Glucometer 70 Random Glucose 118 H D Calcium 9.2 Magnesium 2.4 01/12/17 01/12/17 06:12 11:34 WBC RBC Hgb Hct MCV MCH MCHC RDW Plt Count MPV Neutrophils % Lymphocytes % Monocytes % Eosinophils % Basophils % Sodium Potassium Chloride Carbon Dioxide Anion Gap BUN Creatinine POC Glucometer 114 86 Random Glucose Calcium Magnesium Problem List - Problems (1) Abnormal CXR Code(s): R93.8 - ABNORMAL FINDINGS ON DIAGNOSTIC IMAGING OF BODY STRUCTURES (2) CHF (congestive heart failure) Code(s): I50.9 - HEART FAILURE, UNSPECIFIED Qualifiers: Congestive heart failure type: unspecified congestive heart failure type (3) Diabetes Code(s): E11.9 - TYPE 2 DIABETES MELLITUS WITHOUT COMPLICATIONS Qualifiers: Diabetes mellitus type: type 2 (4) ILD (interstitial lung disease) Code(s): J84.9 - INTERSTITIAL PULMONARY DISEASE, UNSPECIFIED Assessment/Plan Diuresis as needed (likely has Pulm HTN -> Pulmonary vascular congestion) O2 as needed Patient with a chronic ILD. Seems no previous work up has been done. There is no acute indication for systemic steroids at this time. He O2 saturation ranges from 92 to 96, so he does not require home O2. For Stress test in the AM. Dr Martinez Problem List - Problems (1) Abnormal CXR Code(s): R93.8 - ABNORMAL FINDINGS ON DIAGNOSTIC IMAGING OF BODY STRUCTURES (2) CHF (congestive heart failure) Code(s): I50.9 - HEART FAILURE, UNSPECIFIED Qualifiers: Congestive heart failure type: unspecified congestive heart failure type (3) Diabetes Code(s): E11.9 - TYPE 2 DIABETES MELLITUS WITHOUT COMPLICATIONS Qualifiers: Diabetes mellitus type: type 2 (4) ILD (interstitial lung disease) Code(s): J84.9 - INTERSTITIAL PULMONARY DISEASE, UNSPECIFIED
--- NOTE | 2017-01-12 16:32 | PN ---
Physical Exam: SUBJECTIVE: Patient seen and examined, was sitting up, eating lunch, and seen again in the solarium with is family member. He states that he is able to ambulate without shortness of breath. Denies chest pain. OBJECTIVE: Vital Signs Period Temp Pulse Resp BP Sys/Loera Pulse Ox Last 24 Hr 97.3 F-98.8 F 77-89 16-20 114-144/65-85 98-98 GENERAL: The patient is awake, alert, and fully oriented, in no acute distress. HEAD: Normal with no signs of trauma. EYES: PERRL, extraocular movements intact, sclera anicteric, conjunctiva clear. No ptosis. ENT: Ears normal, nares patent, oropharynx clear without exudates, moist mucous membranes. NECK: Trachea midline, full range of motion, supple. LUNGS: +crackles on right lung base, left lung clear to auscultation HEART: Regular rate and rhythm, NSR on cardiac catheterization technician ABDOMEN: Soft, nontender, nondistended, normoactive bowel sounds, no guarding, no rebound, no hepatosplenomegaly, no masses. EXTREMITIES: trace non pitting edema on both ankles NEUROLOGICAL: Normal speech, gait not observed. PSYCH: Normal mood, normal affect. SKIN: Warm, dry, normal turgor, no rashes or lesions noted Laboratory Results - last 24 hr 01/11/17 01/12/17 01/12/17 17:10 05:35 05:35 WBC 9.3 D RBC 4.87 Hgb 14.3 Hct 43.5 MCV 89.3 MCH 29.3 MCHC 32.8 RDW 14.8 Plt Count 184 MPV 10.3 Neutrophils % 58.3 Lymphocytes % 22.6 Monocytes % 14.2 H Eosinophils % 4.5 Basophils % 0.4 Sodium 136 Potassium 4.3 Chloride 99 Carbon Dioxide 29 Anion Gap 8 BUN 28 H D Creatinine 1.4 H D POC Glucometer 70 Random Glucose 118 H D Calcium 9.2 Magnesium 2.4 01/12/17 01/12/17 06:12 11:34 WBC RBC Hgb Hct MCV MCH MCHC RDW Plt Count MPV Neutrophils % Lymphocytes % Monocytes % Eosinophils % Basophils % Sodium Potassium Chloride Carbon Dioxide Anion Gap BUN Creatinine POC Glucometer 114 86 Random Glucose Calcium Magnesium Active Medications Generic Name Dose Route Start Last Admin Trade Name Freq PRN Reason Stop Dose Admin Albuterol/Ipratropium 1 amp 01/11/17 10:45 Duoneb - NEB Q6H PRN SHORTNESS OF BREATH Amlodipine Besylate 5 mg 01/11/17 10:00 01/12/17 09:35 Norvasc - PO 5 mg DAILY YAEL Administration Aspirin 81 mg 01/11/17 10:00 01/12/17 09:35 Asa - PO 81 mg DAILY YAEL Administration Atorvastatin Calcium 10 mg 01/11/17 22:00 01/11/17 21:23 Lipitor - PO 10 mg HS YAEL Administration Furosemide 40 mg 01/11/17 10:00 01/12/17 09:35 Lasix - PO 40 mg DAILY YAEL Administration Hydrochlorothiazide 12.5 mg 01/11/17 10:00 01/12/17 09:35 Hctz - PO 12.5 mg DAILY YAEL Administration Insulin Aspart 1 vial 01/11/17 10:38 01/12/17 12:51 Novolog Vial Sliding Scale - SQ Not Given TIDAC [facility] Protocol Levothyroxine Sodium 112 mcg 01/11/17 15:41 01/12/17 06:14 Synthroid - PO 112 mcg DAILY@0700 YAEL Administration Lidocaine 1 patch 01/11/17 11:00 01/12/17 09:35 Lidoderm Patch - TP 1 patch DAILY YAEL Administration Memantine 5 mg 01/11/17 10:00 01/12/17 09:35 Namenda - PO 5 mg DAILY YAEL Administration Miscellaneous 1 each 01/11/17 22:00 01/11/17 21:24 Lidoderm Patch Removal MC 1 each DAILY@2200 YAEL Administration Tamsulosin HCl 0.4 mg 01/11/17 08:30 01/12/17 09:35 Flomax - PO 0.4 mg DAILY@0830 YAEL Administration ASSESSMENT/PLAN: Patient is a 71 year old male with a significant past medical history of hypertension, hyperlipidemia, DM, COPD, and hypothyroidism. He presented to the ER on 01/11/2017 with complaints of left sided shoulder and elbow pain that radiated to this chest. He is admitted under observation for further testing. Imaging: Chest CT 01/11/2017: Interstitial lung disease, +cardiomegaly, cannot exclude superimposed CHF. Chest xray 01/10/2017: Large heart with extensive congestive changes and some pleural fluid Cardiology: Chest pain - resolved A/P: Chest pain from left shoulder to left chest on admission, now only having mild should discomfort Troponins 0.05 0.06>0.06 EKG NSR with no significant changes from previous Monitor daily weights and intake and output For stress test and echo tomorrow Congestive Heart Failure A/P: Increased congestion on chest xray Started on Lasix 40mg IV daily Hypertension - chronic A/P: On Amlodopine 5mg daily, HCTZ 12.5 daily Monitor BP Hyperlipidemia - chronic A/P: Lipid panel reviewed, on home Lipitor 10mg Pulmonary: Shortness of breath - resolved A/P: Chest xray with evidence of congestion Chest CT shows interstitial lung disease, +cardiomegaly Cannot exclude superimposed CHF Pulmonary following Endocrine: Hypothyroid A/P: On synthroid 100mcg at home, last TSH on 11/29/16 was 9.72, TSH today 6.94 Increased Synthroid to 112mcg daily, will need repeat TSH in 6 weeks Diabetes Mellitus A/P: On sliding scale, monitor BGMs hmga1c 7.2, follow up outpatient with PCP, Prophylaxis: GI: deferred DVT: SCDs, ambulation F.E.N. Fluids: tolerating PO Electrolytes: monitor on Lasix Nutrition: diabetic low sodium diet Disposition: Pt currently requires inpatient monitoring for management of his emergent condition. Full Code Visit type - Emergency Visit Emergency Visit: Yes ED Registration Date: 01/11/17 Care time: The patient presented to the Emergency Department on the above date and was hospitalized for further evaluation of their emergent condition. - New Patient This patient is new to me today: No - Critical Care Critical Care patient: No - Discharge Referral Referred to [facility] Med [facility] No
[2017-01-12] MEDS: LIDOCAINE PATCH REMOVAL MC SCH (21:17)
[2017-01-12] MEDS: ATORVASTATIN CA 10 MG TABLET (FP) PO SCH (21:17)
[2017-01-13] MEDS: INSULIN SLIDING SCALE (NOVOLOG) 1 VIAL SQ SCH ×3 (06:01→18:21)
[2017-01-13] MEDS: LEVOTHYROXINE NA 112 MCG TABLET (FP) PO SCH (06:32)
[2017-01-13 07:50] LABS: BASOPHIL 0.7 % (0-2.0); MCH 29.3 pg (25.7-33.7); MCHC 32.9 g/dl (32.0-35.9); MEAN CELL VOLUME 89.1 fl (80-96); NEUTROPHILS 55.1 % (42.8-82.8); PLATELET COUNT 171 K/MM3 (134-434); RDW 14.7 % (11.9-15.9); WHITE BLOOD COUNT 7.8 K/mm3 (4.0-10.0)
[2017-01-13 08:00] LABS: ALBUMIN 3.4 g/dl (3.4-5.0); ANION GAP 7 (8-16); CALCIUM 8.6 mg/dL (8.5-10.1); CO2 29 mmol/L (21-32); CREATININE 1.2 mg/dL (0.7-1.3); GLUCOSE,RANDOM 118 mg/dL (74-106); SGOT/AST 45 U/L (15-37); SGPT/ALT 58 U/L (12-78)
[2017-01-13 08:02] LABS: ALK PHOS 109 U/L (45-117); BILIRUBIN,TOTAL 0.2 mg/dL (0.2-1.0); TOT PROT 7.5 g/dl (6.4-8.2)
--- NOTE | 2017-01-13 09:35 | PN ---
Progress Note, Physician Chief Complaint: Pt OOB in chair; no chest pain or dyspnea. Pt's daughter is at bedside. History of Present Illness: The patient is a 71 year old male brought via EMS, with a significant past medical history of COPD, hypercholesterolemia, diabetes, HTN, chronic low back pain and thyroid disease, who presents to the emergency department with chest pain and left arm pain onset at 3pm today. He describes the chest pain as mild, rating it a 3/10 in severity, with radiation to this left upper extremity. He denies any modifying factors. He describes the arm pain as severe, and notes that the pain is exacerbated with movement. He denies lifting any heavy objects or recent falls. The patients last fall was 1 month, when he fell out of bed. He came to the ED for evaluation, got a head CT which was within normal limits and was discharged same day. He reports that the pain causes him to experience dizziness. He notes that he has been having trouble breathing at night and when climbing stairs. He can climb 5 steps before having to stop. He reports that his last stress test was over 5 years ago and was normal. On route EMS gave the patient Nitro and Aspirin 324 mg which the patient reports helped relieve some of the pain. The patient denies shortness of breath, headache. Denies fever, chills, nausea, vomit, diarrhea and constipation. Denies dysuria, frequency, urgency and hematuria. - Current Medication List Current Medications: Active Medications Albuterol/Ipratropium (Duoneb -) 1 amp NEB Q6H PRN PRN Reason: SHORTNESS OF BREATH Amlodipine Besylate (Norvasc -) 5 mg PO DAILY [facility] Last Admin: 01/12/17 09:35 Dose: 5 mg Aspirin (Asa -) 81 mg PO DAILY [facility] Last Admin: 01/12/17 09:35 Dose: 81 mg Atorvastatin Calcium (Lipitor -) 10 mg PO HS [facility] Last Admin: 01/12/17 21:17 Dose: 10 mg Furosemide (Lasix -) 40 mg PO DAILY [facility] Last Admin: 01/12/17 09:35 Dose: 40 mg Hydrochlorothiazide (Hctz -) 12.5 mg PO DAILY [facility] Last Admin: 01/12/17 09:35 Dose: 12.5 mg Insulin Aspart (Novolog Vial Sliding Scale -) 1 vial SQ TIDAC [facility] PRN Reason: Protocol Last Admin: 01/13/17 06:01 Dose: Not Given Levothyroxine Sodium (Synthroid -) 112 mcg PO DAILY@0700 [facility] Last Admin: 01/13/17 06:32 Dose: 112 mcg Lidocaine (Lidoderm Patch -) 1 patch TP DAILY [facility] Last Admin: 01/12/17 09:35 Dose: 1 patch Memantine (Namenda -) 5 mg PO DAILY [facility] Last Admin: 01/12/17 09:35 Dose: 5 mg Miscellaneous (Lidoderm Patch Removal) 1 each MC DAILY@2200 [facility] Last Admin: 01/12/17 21:17 Dose: 1 each Tamsulosin HCl (Flomax -) 0.4 mg PO DAILY@0830 [facility] Last Admin: 01/12/17 09:35 Dose: 0.4 mg - Objective Vital Signs: Vital Signs Temperature 97.5 F L 01/13/17 06:00 Pulse Rate 72 01/13/17 06:00 Respiratory Rate 16 01/13/17 06:00 Blood Pressure 131/75 01/13/17 06:00 O2 Sat by Pulse Oximetry (%) 98 01/12/17 20:15 Labs: CBC, BMP 01/13/17 05:35 01/13/17 05:35 Problem List - Problems (1) Diabetes Code(s): E11.9 - TYPE 2 DIABETES MELLITUS WITHOUT COMPLICATIONS Qualifiers: Diabetes mellitus type: type 2 (2) Interstitial lung disease Code(s): J84.9 - INTERSTITIAL PULMONARY DISEASE, UNSPECIFIED (3) Atypical chest pain Assessment/Plan: Stress Persantine MIBI: small area inferobasal ischemia; gated studies show normal LVEF, borderline dilated LV; exaggerated resonse to Persantine (HR increase; BP reduced). Pt defers coronary angiogram. He wlll be followed as an outpatient, and plans to attend cardiac rehabilitation at [facility]. Aggressive lipid Rx; Pt's pain is mostly in let upper arm; it is constant (lasting several days), and not affected by walking. Code(s): R07.89 - OTHER CHEST PAIN (4) Hyperlipidemia Code(s): E78.5 - HYPERLIPIDEMIA, UNSPECIFIED (5) HTN (hypertension) Code(s): I10 - ESSENTIAL (PRIMARY) HYPERTENSION
[2017-01-13] MEDS ORDERED: DIPYRIDAMOLE STRESS TEST IVPB ONE (10:00)
[2017-01-13] MEDS ORDERED: DEXTROSE 5% IVPB ONE (10:00)
[2017-01-13] MEDS ORDERED: WATER IVPB ONE (10:00)
--- NOTE | 2017-01-13 12:52 | PN ---
Progress Note (short form) - Note Progress Note: PULMONARY States breathing has improved. No chest pain. Last Vital Signs Temp Pulse Resp BP Pulse Ox 97.5 F L 72 16 131/75 98 01/13/17 06:00 01/13/17 06:00 01/13/17 06:00 01/13/17 06:00 01/12/17 20:15 Gen: NAD at rest Heart: RRR Lung: bibasilar rales Abd: soft, nontender Ext: no edema CBC, BMP 01/13/17 05:35 01/13/17 05:35 Active Medications Albuterol/Ipratropium (Duoneb -) 1 amp NEB Q6H PRN PRN Reason: SHORTNESS OF BREATH Aminophylline (Aminophylline Injection -) 125 mg IVPUSH ONCE ONE Stop: 01/13/17 13:01 Amlodipine Besylate (Norvasc -) 5 mg PO DAILY [facility] Last Admin: 01/12/17 09:35 Dose: 5 mg Aspirin (Asa -) 81 mg PO DAILY [facility] Last Admin: 01/12/17 09:35 Dose: 81 mg Atorvastatin Calcium (Lipitor -) 10 mg PO HS [facility] Last Admin: 01/12/17 21:17 Dose: 10 mg Furosemide (Lasix -) 40 mg PO DAILY [facility] Last Admin: 01/12/17 09:35 Dose: 40 mg Hydrochlorothiazide (Hctz -) 12.5 mg PO DAILY [facility] Last Admin: 01/12/17 09:35 Dose: 12.5 mg Insulin Aspart (Novolog Vial Sliding Scale -) 1 vial SQ TIDAC [facility] PRN Reason: Protocol Last Admin: 01/13/17 06:01 Dose: Not Given Levothyroxine Sodium (Synthroid -) 112 mcg PO DAILY@0700 [facility] Last Admin: 01/13/17 06:32 Dose: 112 mcg Lidocaine (Lidoderm Patch -) 1 patch TP DAILY [facility] Last Admin: 01/12/17 09:35 Dose: 1 patch Memantine (Namenda -) 5 mg PO DAILY [facility] Last Admin: 01/12/17 09:35 Dose: 5 mg Miscellaneous (Lidoderm Patch Removal) 1 each MC DAILY@2200 [facility] Last Admin: 01/12/17 21:17 Dose: 1 each Tamsulosin HCl (Flomax -) 0.4 mg PO DAILY@0830 [facility] Last Admin: 01/12/17 09:35 Dose: 0.4 mg A/P Chest Pain CHF Interstitial Lung Disease COPD HTN DM Hyperlipidemia - continue lasix - monitor urine output, creatinine - echocardiogram - for stress test - inhaled bronchodilators as needed - DVT prophylaxis
[2017-01-13] MEDS ORDERED: AMINOPHYLLINE 250 MG/10 ML VIAL IVPUSH ONE (13:00)
[2017-01-13] MEDS: MEMANTINE HCL 5 MG TABLET (UD) PO SCH (13:33)
[2017-01-13] MEDS: TAMSULOSIN HCL 0.4 MG CAP.ER.24H (FP) PO SCH (13:33)
[2017-01-13] MEDS: HYDROCHLOROTHIAZIDE 12.5 MG CAPSULE (FP) PO SCH (13:33)
[2017-01-13] MEDS: amLODIPine BESYLATE 5 MG TABLET (FP) PO SCH (13:34)
[2017-01-13] MEDS: ASPIRIN 81 MG CHEWABLE TABLETS PO SCH (13:34)
[2017-01-13] MEDS: LIDOCAINE 5% TOPICAL PATCH TP SCH (13:34)
[2017-01-13] MEDS: FUROSEMIDE 40 MG TABLET (FP) PO SCH (13:34)
--- NOTE | 2017-01-13 17:35 | PN ---
Physical Exam: SUBJECTIVE: Patient seen and examined at the bedside. He denies any pain or discomfort. Denies chest pain or shortness of breath. OBJECTIVE: Stress test 01/13/17: final conclusion negative stress EKG for ischemia or arrhythmia post vasodilator. Exaggerated heart rate and blood pressure response to vasodilator stress/Nuclear results: mildly abnormal myocardial perfusion imaging with mild basal inferior ischemia, borderline dilated left ventricle and preserved LV EF 53%. Echocardiogram 01/13/2017: trace to mild tricuspid regurg, pulmonic valv. regurg. The transmitral spectral doppler flow pattern is suggestive of impaired LV relaxation. Cardiology clearance prior to discharge. I informed patient that he has to follow up with Dr. Roberto for the interstitial lung disease diagnosis. Patient in agreement. Repeat TSH in 6 weeks. Vital Signs Period Temp Pulse Resp BP Sys/Loera Pulse Ox Last 24 Hr 97.5 F-98.5 F 72-86 16-22 117-132/58-75 98-98 GENERAL: The patient is awake, alert, and fully oriented, in no acute distress. HEAD: Normal with no signs of trauma. EYES: PERRL, extraocular movements intact, sclera anicteric, conjunctiva clear. No ptosis. ENT: Ears normal, nares patent, oropharynx clear without exudates, moist mucous membranes. NECK: Trachea midline, full range of motion, supple. LUNGS: +crackles on right lung base, left lung clear to auscultation HEART: Regular rate and rhythm, NSR on line controller ABDOMEN: Soft, nontender, nondistended, normoactive bowel sounds, no guarding, no rebound, no hepatosplenomegaly, no masses. EXTREMITIES: trace non pitting edema on both ankles NEUROLOGICAL: Normal speech, gait not observed. PSYCH: Normal mood, normal affect. SKIN: Warm, dry, normal turgor, no rashes or lesions noted Laboratory Results - last 24 hr 01/13/17 01/13/17 01/13/17 05:35 05:35 05:58 WBC 7.8 RBC 4.59 Hgb 13.5 Hct 40.9 MCV 89.1 MCH 29.3 MCHC 32.9 RDW 14.7 Plt Count 171 MPV 11.0 Neutrophils % 55.1 Lymphocytes % 25.0 Monocytes % 14.2 H Eosinophils % 5.0 H Basophils % 0.7 Sodium 137 Potassium 4.1 Chloride 101 Carbon Dioxide 29 Anion Gap 7 L BUN 32 H Creatinine 1.2 Creat Clearance w eGFR 59.68 POC Glucometer 121 Random Glucose 118 H Calcium 8.6 Total Bilirubin 0.2 D AST 45 H ALT 58 Alkaline Phosphatase 109 Total Protein 7.5 Albumin 3.4 01/13/17 01/13/17 13:54 17:13 WBC RBC Hgb Hct MCV MCH MCHC RDW Plt Count MPV Neutrophils % Lymphocytes % Monocytes % Eosinophils % Basophils % Sodium Potassium Chloride Carbon Dioxide Anion Gap BUN Creatinine Creat Clearance w eGFR POC Glucometer 217 100 Random Glucose Calcium Total Bilirubin AST ALT Alkaline Phosphatase Total Protein Albumin Active Medications Generic Name Dose Route Start Last Admin Trade Name Freq PRN Reason Stop Dose Admin Albuterol/Ipratropium 1 amp 01/11/17 10:45 Duoneb - NEB Q6H PRN SHORTNESS OF BREATH Amlodipine Besylate 5 mg 01/11/17 10:00 01/13/17 13:34 Norvasc - PO 5 mg DAILY [facility]AEL Administration Aspirin 81 mg 01/11/17 10:00 01/13/17 13:34 Asa - PO 81 mg DAILY YAEL Administration Atorvastatin Calcium 10 mg 01/11/17 22:00 01/12/17 21:17 Lipitor - PO 10 mg HS YAEL Administration Furosemide 40 mg 01/11/17 10:00 01/13/17 13:34 Lasix - PO 40 mg DAILY YAEL Administration Hydrochlorothiazide 12.5 mg 01/11/17 10:00 01/13/17 13:33 Hctz - PO 12.5 mg DAILY YAEL Administration Insulin Aspart 1 vial 01/11/17 10:38 01/13/17 13:56 Novolog Vial Sliding Scale - SQ Not Given TIDAC [facility] Protocol Levothyroxine Sodium 112 mcg 01/11/17 15:41 01/13/17 06:32 Synthroid - PO 112 mcg DAILY@0700 YAEL Administration Lidocaine 1 patch 01/11/17 11:00 01/13/17 13:34 Lidoderm Patch - TP 1 patch DAILY [facility] Administration Memantine 5 mg 01/11/17 10:00 01/13/17 13:33 Namenda - PO 5 mg DAILY [facility] Administration Miscellaneous 1 each 01/11/17 22:00 01/12/17 21:17 Lidoderm Patch Removal MC 1 each DAILY@2200 [facility]EL Administration Tamsulosin HCl 0.4 mg 01/11/17 08:30 01/13/17 13:33 Flomax - PO 0.4 mg DAILY@0830 [facility] Administration ASSESSMENT/PLAN: Patient is a 71 year old male with a significant past medical history of hypertension, hyperlipidemia, DM, COPD, and hypothyroidism. He presented to the ER on 01/11/2017 with complaints of left sided shoulder and elbow pain that radiated to this chest. He is admitted under observation for further testing. Imaging: Chest CT 01/11/2017: Interstitial lung disease, +cardiomegaly, cannot exclude superimposed CHF. Chest xray 01/10/2017: Large heart with extensive congestive changes and some pleural fluid Cardiology: Chest pain - resolved A/P: Chest pain from left shoulder to left chest on admission, now only having mild shoulder discomfort Troponins 0.05 0.06>0.06 EKG NSR with no significant changes from previous Monitor daily weights and intake and output Stress and echo results as noted above Congestive Heart Failure A/P: Increased congestion on chest xray Started on Lasix 40mg PO daily Hypertension - chronic A/P: On Amlodopine 5mg daily, HCTZ 12.5 daily Monitor BP Hyperlipidemia - chronic A/P: Lipid panel reviewed, on home Lipitor 10mg Pulmonary: Shortness of breath - resolved A/P: Chest xray with evidence of congestion Chest CT shows interstitial lung disease, +cardiomegaly Cannot exclude superimposed CHF Pulmonary following Endocrine: Hypothyroid A/P: On synthroid 100mcg at home, last TSH on 11/29/16 was 9.72, now TSH 6.94 Increased Synthroid to 112mcg daily, will need repeat TSH in 6 weeks Diabetes Mellitus A/P: On sliding scale, monitor BGMs hmga1c 7.2, follow up outpatient with PCP, Prophylaxis: GI: deferred DVT: SCDs, ambulation F.E.N. Fluids: tolerating PO Electrolytes: monitor on Lasix Nutrition: diabetic low sodium diet Disposition: Pt currently requires inpatient monitoring for management of his emergent condition. Discharge once cleared by cardiology. Full Code
[2017-01-13 19:52] VITALS: PULSE 83
[2017-01-13 20:30] VITALS: BP 138/79; TEMP 98.4
== END 2017-01-13 21:09 | disposition home or self-care (01) ==
LOC: JER 21:29 → JERBED 01-11 01:29 → J4W 01-11 03:38
PROVIDERS: ADMIT Internal Medicine; ATTEND Nurse Practitioner Family
PROC: 3E033GC Introduction of Other Therapeutic Substance into Peripheral Vein, Percutaneous Approach (ICD-10-PCS; principal; 2017-01-11)
DX: R07.9 Chest pain, unspecified (principal); I50.9 Heart failure, unspecified; I10 Essential (primary) hypertension; E11.9 Type 2 diabetes mellitus without complications; E78.5 Hyperlipidemia, unspecified; E03.9 Hypothyroidism, unspecified; J44.9 Chronic obstructive pulmonary disease, unspecified; J84.9 Interstitial pulmonary disease, unspecified; R93.8 Abnormal findings on diagnostic imaging of other specified body structures; M54.5 Low back pain; G89.29 Other chronic pain; Z88.0 Allergy status to penicillin; Z87.891 Personal history of nicotine dependence; Z79.82 Long term (current) use of aspirin; Z79.84 Long term (current) use of oral hypoglycemic drugs
CPT/HCPCS: 36415; 71010-TC; 71250-TC; 73030-TC-LT; 78452-TC; 80048; 80053; 80061; 82553; 83036; 83721; 83735; 83880; 84100; 84443; 84484; 85025; 93005; 93010; 93017; 93306-TC; 94761; 99284-25; A9502; G0378

== ENCOUNTER 2018-04-14 03:15 | Emergency (ER) | payer BC, OTHER ==
[2018-04-14 03:44] VITALS: PULSE 84; TEMP 98; BMI 25.8
[2018-04-14 05:45] LABS: BASO % 0.7 % (0-2.0); EOS % 4.7 % (0-4.5); HEMATOCRIT 34.4 % (35.4-49); HEMOGLOBIN 10.7 GM/dL (11.7-16.9); LYMPH % 19.2 % (8-40); MCH 24.6 pg (25.7-33.7); MCHC 31.2 g/dl (32.0-35.9); MEAN CELL VOLUME 79.1 fl (80-96); MEAN PLT VOLUME 9.5 fl (7.5-11.1); MONO % 10.4 % (3.8-10.2); PLATELET COUNT 234 K/MM3 (134-434); RBC 4.35 M/mm3 (4.00-5.60); RDW 19.5 % (11.9-15.9); WHITE BLOOD COUNT 7.9 K/mm3 (4.0-10.0)
[2018-04-14 06:00] LABS: INR 1.13 (0.83-1.09); PROTHROMBIN TIME (PATIENT) 13.3 SEC (9.7-13.0)
[2018-04-14 06:10] LABS: ALBUMIN 3.3 g/dl (3.4-5.0); ALK PHOS 93 U/L (45-117); ANION GAP 4 MMOL/L (8-16); BILIRUBIN,TOTAL 0.3 mg/dL (0.2-1); BLOOD UREA NITROGEN 20 mg/dL (7-18); CALCIUM 8.3 mg/dL (8.5-10.1); CHLORIDE 106 mmol/L (98-107); CO2 27 mmol/L (21-32); CREATININE 0.9 mg/dL (0.55-1.3); GLUCOSE,RANDOM 82 mg/dL (74-106); POTASSIUM 4.3 mmol/L (3.5-5.1); SGOT/AST 39 U/L (15-37); SGPT/ALT 36 U/L (13-61); SODIUM 137 mmol/L (136-145); TOT PROT 7.6 g/dl (6.4-8.2)
--- NOTE | 2018-04-14 06:50 | PDOC ---
Attending Attestation - Resident Resident Name: Haile Mcallister - ED Attending Attestation I have performed the following: I have examined & evaluated the patient, The case was reviewed & discussed with the resident, I agree w/resident's findings & plan, Exceptions are as noted - HPI HPI: 04/14/18 06:49 72 yo M h/o HTN, COPD, DM presenting with nasal bleeding over the past day Pt uses O2 and fell asleep with his O2 (non humidified) When he picked his nose, he noticed bleeding No chest pain No palpitations He felt a little dizzy last night No heavy bleeding (no saturating his clothing or bedding) 04/14/18 22:38 - Physicial Exam PE: 04/14/18 06:50 GENERAL: The patient is in no acute distress, no active bleeding noted HEAD: Normal with no signs of trauma. EYES: PERRLA, EOMI ENT: Ears normal, nares patent, dried blood noted in nares, oropharynx clear without exudates. Moist mucous membranes. NECK: Normal range of motion LUNGS: Breath sounds equal, clear to auscultation bilaterally. HEART:Regular rate and rhythm, normal S1 and S2 without murmur, rub or gallop. ABDOMEN: Soft, nontender EXTREMITIES: Normal range of motion NEUROLOGICAL: Cranial nerves II through XII grossly intact. Normal speech. No focal neurological deficits. SKIN: No bruising noted 04/14/18 22:36 - Medical Decision Making 04/14/18 22:37 No bleeding on examination now Pt encouraged to AVOID picking his nose Use humidified oxygen and nasal spray Follow up with ENT Return to the ER for recurrent of persistent bleeding Clinical impression: Resolved epistaxis, initial presentation
[2018-04-14 07:08] VITALS: BP 136/70
--- NOTE | 2018-04-14 07:25 | PDOC ---
History of Present Illness - General Chief Complaint: Nasal Bleeding Stated Complaint: NOSE BLEED Time Seen by Provider: 04/14/18 06:01 - History of Present Illness Initial Comments: 04/14/18 07:26 72M with pmh of htn, COPD, dm2 presents with nasal bleeding since Friday after falling asleep with home o2 in nose. [place] a bit dizzy last night no other symptoms. 04/14/18 07:29 Patient has a gauze in left nostril. Currently not bleeding. Past History - Past Medical History Allergies/Adverse Reactions: Allergies Allergy/AdvReac Type Severity Reaction Status Date / Time Penicillins Allergy Unknown Verified 04/14/18 03:39 Home Medications: Ambulatory Orders Amlodipine Besylate [Norvasc -] 5 mg PO DAILY #0 tablet 04/22/13 Hydrochlorothiazide [Hctz -] 12.5 mg PO DAILY #0 cap 04/22/13 Sitagliptin Phosphate [Januvia] 100 mg PO DAILY #0 tablet 04/22/13 metFORMIN HCL [Glucophage -] 500 mg PO BID #0 tablet 04/22/13 Aspirin [ASA -] 81 mg PO DAILY 01/10/17 Atorvastatin Ca [Lipitor] 10 mg PO HS 01/10/17 Memantine HCl [Namenda -] 5 mg PO DAILY 01/10/17 Tamsulosin HCl [Flomax] 0.4 mg PO DAILY 01/10/17 Furosemide [Lasix -] 40 mg PO DAILY #30 tab 01/13/17 Levothyroxine [Synthroid -] 112 mcg PO DAILY@0700 #60 tablet 01/13/17 Sodium Chloride Nasal [place] [[place] Nasal [place]] 2 spray NS TID #1 spraybtl 04/14/18 COPD: Yes Diabetes: Yes HTN: Yes Hypercholesterolemia: Yes Thyroid Disease: Yes - Surgical History GI Surgery: Yes (hernia repair x 2) - Immunization History Immunization Up to Date: Yes - Suicide/Smoking/Psychosocial Hx Smoking Status: Yes Smoking History: Unknown if ever smoked Have you smoked in the past 12 months: No Number of Cigarettes Smoked Daily: 20 If you are a former smoker, when did you quit?: 06/2016 Information on smoking cessation initiated: No 'Breaking Loose' booklet given: 01/11/17 Hx Alcohol Use: No Drug/Substance Use Hx: No Substance Use Type: None Hx Substance Use Treatment: No Review of Systems - Review of Systems Able to Perform ROS?: Yes Is the patient limited Serbian proficient: No Constitutional: No: Symptoms Reported HEENTM: Yes: See HPI Respiratory: No: Symptoms reported Cardiac (ROS): No: Symptoms Reported ABD/GI: No: Symptoms Reported : No: Symptoms Reported Musculoskeletal: No: Symptoms Reported Integumentary: No: Symptoms Reported Neurological: Yes: See HPI *Physical Exam - Vital Signs Last Vital Signs Temp Pulse Resp BP Pulse Ox 98 F 84 19 136/70 97 04/14/18 03:15 04/14/18 03:15 04/14/18 03:15 04/14/18 03:16 04/14/18 03:15 - Physical Exam General Appearance: Yes: Nourished, Appropriately Dressed. No: Apparent Distress HEENT: positive: EOMI, LORY, Normal ENT Inspection, Other (dried blood in left nostril. ) Respiratory/Chest: positive: Lungs Clear, Normal Breath Sounds. negative: Chest Tender, Respiratory Distress Cardiovascular: positive: Regular Rhythm, Regular Rate, S1, S2 Gastrointestinal/Abdominal: positive: Normal Bowel Sounds, Flat, Soft. negative : Tender Extremity: positive: Other (LArge digital clubbing. ) Integumentary: positive: Normal Color, Dry, Warm ED Treatment Course - LABORATORY CBC & Chemistry Diagram: 04/14/18 04:34 04/14/18 04:34 - ADDITIONAL ORDERS Additional order review: Laboratory Results 04/14/18 04/14/18 04:34 04:34 PT with INR 13.30 H INR 1.13 H Sodium 137 Potassium 4.3 Chloride 106 Carbon Dioxide 27 Anion Gap 4 L BUN 20 H Creatinine 0.9 Creat Clearance w eGFR > 60 Random Glucose 82 Calcium 8.3 L Total Bilirubin 0.3 AST 39 H ALT 36 Alkaline Phosphatase 93 Total Protein 7.6 Albumin 3.3 L 04/14/18 04:34 RBC 4.35 MCV 79.1 L MCHC 31.2 L RDW 19.5 H MPV 9.5 Neutrophils % 65.0 Lymphocytes % 19.2 Monocytes % 10.4 H Eosinophils % 4.7 H Basophils % 0.7 Medical Decision Making - Medical Decision Making 04/14/18 07:30 Patient instructed on avoiding drying up nasal [place]. Labs negative for anemia. Will d/c with return precautions. *DC/Admit/Observation/Transfer Diagnosis at time of Disposition: Nasal hemorrhage - Discharge Dispostion Disposition: HOME Condition at time of disposition: Fair Decision to Admit order: No - Prescriptions Prescriptions: Sodium Chloride Nasal [place] [[place] Nasal [place]] 2 spray NS TID #1 spraybtl - Referrals - Patient Instructions Printed Discharge Instructions: DI for Nosebleed Additional Instructions: Follow up with your primary doctor within 3-4 days. Come back to the ER for any new, worsening or concerning symptom. Print Language: ALBANIAN - Post Discharge Activity
== END 2018-04-14 07:42 | disposition home or self-care (01) ==
LOC: JER 03:15
DX: R04.0 Epistaxis (principal); I10 Essential (primary) hypertension; Z79.84 Long term (current) use of oral hypoglycemic drugs; J44.9 Chronic obstructive pulmonary disease, unspecified; Z99.81 Dependence on supplemental oxygen
CPT/HCPCS: 36415; 80053; 85025; 85610; 99281-25

== ENCOUNTER 2018-10-28 07:06 | Day surgery (SDC) | payer BC, OTHER ==
[2018-10-28] MEDS ORDERED: FERRIC CARBOXYMALTOSE 750 MG in SODIUM CHLORIDE 250 ML IVPB ONE (10:00)
[2018-10-28] MEDS ORDERED: CYANOCOBALAMIN (VITAMIN B-12) 1000 MCG/1 ML VIAL IM ONE (10:00)
[2018-10-28 15:07] VITALS: TEMP 97.7
[2018-10-28 15:11] VITALS: BP 139/82; PULSE 76
== END 2018-10-28 13:30 | disposition home or self-care (01) ==
LOC: JONCCHEMO 07:06 → J7W 11:42 → JONCCHEMO 13:30
PROVIDERS: ATTEND Internal Medicine Hematology & Oncology
PROC: 3E033GC Introduction of Other Therapeutic Substance into Peripheral Vein, Percutaneous Approach (ICD-10-PCS; principal; 2018-10-28)
DX: D50.9 Iron deficiency anemia, unspecified (principal)
CPT/HCPCS: 96365; 96372; J1439

== ENCOUNTER 2018-11-04 07:02 | Day surgery (SDC) | payer BC, OTHER ==
[2018-11-04] MEDS ORDERED: FERRIC CARBOXYMALTOSE 750 MG in SODIUM CHLORIDE 250 ML IVPB ONE (10:00)
[2018-11-04] MEDS ORDERED: CYANOCOBALAMIN (VITAMIN B-12) 1000 MCG/1 ML VIAL IM ONE (10:00)
[2018-11-04 15:24] VITALS: TEMP 97.9
[2018-11-04 15:28] VITALS: BP 132/86; PULSE 79
== END 2018-11-04 13:20 | disposition home or self-care (01) ==
LOC: JONCNONCHE 07:02 → J7W 11:12 → JONCNONCHE 13:20
PROVIDERS: ATTEND Internal Medicine Hematology & Oncology
PROC: 3E033GC Introduction of Other Therapeutic Substance into Peripheral Vein, Percutaneous Approach (ICD-10-PCS; principal; 2018-11-04)
DX: D50.9 Iron deficiency anemia, unspecified (principal)
CPT/HCPCS: 96365; 96372; J1439

== ENCOUNTER 2019-03-03 19:04 | Emergency (ER) | payer BC, OTHER ==
--- NOTE | 2019-03-03 19:44 | PDOC ---
Attending Attestation - Resident Resident Name: Tiffanie Montilla - ED Attending Attestation I have performed the following: I have examined & evaluated the patient, The case was reviewed & discussed with the resident, I agree w/resident's findings & plan
[2019-03-03 19:46] VITALS: BP 147/89; PULSE 89; TEMP 96; BMI 24.3
[2019-03-03] MEDS ORDERED: OXYMETAZOLINE 0.05% NASAL SOLUTION 15 ML BOTTLE NS ONE (20:28)
[2019-03-03 20:48] LABS: BASO % 0.6 % (0-2.0); EOS % 4.4 % (0-4.5); HEMOGLOBIN 14.6 GM/dL (11.7-16.9); LYMPH % 25.3 % (8-40); MCH 31.2 pg (25.7-33.7); MCHC 33.1 g/dl (32.0-35.9); MEAN CELL VOLUME 94.3 fl (80-96); MEAN PLT VOLUME 9.9 fl (7.5-11.1); MONO % 11.5 % (3.8-10.2); NEUT % 58.2 % (42.8-82.8); PLATELET COUNT 195 K/MM3 (134-434); RBC 4.67 M/mm3 (4.00-5.60); RDW 14.7 % (11.9-15.9)
--- NOTE | 2019-03-03 20:51 | PDOC ---
History of Present Illness - General Chief Complaint: Nasal Bleeding Stated Complaint: NOSE BLEED Time Seen by Provider: 03/03/19 19:38 - History of Present Illness Initial Comments: 03/03/19 20:43 73 y/o M hx of HTN , DM2 , COPD on O2 (2L) at home, COPD, past bleeding event Apr, 2018, presenting with epistasix. He has been bleeding intermitently for 1 week. Those previous episodes would cease after packing his nose with tissues. Today he has had 3 bleeding episodes. The last episode started at 5pm and went on until he proceeded to ER around 7-7:30. On previous ED visit he was prescribed saline drops to use for dryness and sent home. He denies any trauma , falls or injuries to his nose. He denies any fevers, chills, abdominal pain, diarrhea, nausea or vomiting. He reports stopping the use of blood thinners 2-3 months ago. 03/03/19 20:53 Past History - Past Medical History Allergies/Adverse Reactions: Allergies Allergy/AdvReac Type Severity Reaction Status Date / Time Penicillins Allergy Unknown Verified 03/03/19 19:40 Home Medications: Ambulatory Orders Amlodipine Besylate [Norvasc -] 5 mg PO DAILY #0 tablet 04/22/13 Hydrochlorothiazide [Hctz -] 12.5 mg PO DAILY #0 cap 04/22/13 Sitagliptin Phosphate [Januvia] 100 mg PO DAILY #0 tablet 04/22/13 metFORMIN HCL [Glucophage -] 500 mg PO BID #0 tablet 04/22/13 Aspirin [ASA -] 81 mg PO DAILY 01/10/17 Atorvastatin Ca [Lipitor] 10 mg PO HS 01/10/17 Memantine HCl [Namenda -] 5 mg PO DAILY 01/10/17 Tamsulosin HCl [Flomax] 0.4 mg PO DAILY 01/10/17 Furosemide [Lasix -] 40 mg PO DAILY #30 tab 01/13/17 Levothyroxine [Synthroid -] 112 mcg PO DAILY@0700 #60 tablet 01/13/17 Sodium Chloride Nasal Ennice [[place] Ennice Nasal Ennice] 2 spray NS TID #1 spraybtl 04/14/18 COPD: Yes Diabetes: Yes HTN: Yes Hypercholesterolemia: Yes Thyroid Disease: Yes - Surgical History GI Surgery: Yes (hernia repair x 2) - Immunization History Immunization Up to Date: Yes - Psycho Social/Smoking Cessation Hx Smoking Status: Yes Smoking History: Never smoked Have you smoked in the past 12 months: No Number of Cigarettes Smoked Daily: 20 If you are a former smoker, when did you quit?: 06/2016 Information on smoking cessation initiated: No 'Breaking Loose' booklet given: 01/11/17 Hx Alcohol Use: No Drug/Substance Use Hx: No Substance Use Type: None Hx Substance Use Treatment: No Review of Systems - Review of Systems Constitutional: No: Chills, Fever HEENTM: No: Eye Pain, Blurred Vision Respiratory: No: Cough, Shortness of Breath Cardiac (ROS): No: Chest Pain : No: Burning, Dysuria Musculoskeletal: No: Back Pain Neurological: Yes: Headache. No: Numbness *Physical Exam - Vital Signs Last Vital Signs Temp Pulse Resp BP Pulse Ox 96.0 F L 89 16 147/89 97 03/03/19 19:05 03/03/19 19:05 03/03/19 19:05 03/03/19 19:05 03/03/19 19:05 - Physical Exam Comments: 03/03/19 20:54 PE: GENERAL: Awake, alert, and fully oriented, in no acute distress HEAD: No signs of trauma, normocephalic, atraumatic EYES: sclera anicteric, conjunctiva clear ENT: Auricles normal inspection, hearing grossly normal, blood clot in the left nares, no active bleeding, right nares is clear.oropharynx clear without exudates. Moist mucosa NECK: Normal ROM, supple, no lymphadenopathy, JVD, or masses LUNGS: No distress, speaks full sentences, crackles at lung bases bilaterally. patient on 2L O2 nasal cannula. HEART: Regular rate and rhythm, normal S1 and S2, no murmurs, rubs or gallops, peripheral pulses normal and equal bilaterally. ABDOMEN: Soft, nontender, normoactive bowel sounds. No guarding, no rebound. No masses EXTREMITIES : Normal inspection, Normal range of motion, no edema. No clubbing or cyanosis NEUROLOGICAL: Cranial nerves II through XII grossly intact. Normal speech, normal gait, no focal sensorimotor deficits SKIN: Warm, Dry, normal turgor, no rashes or lesions noted ED Treatment Course - LABORATORY CBC & Chemistry Diagram: 03/03/19 20:30 03/03/19 20:30 Medical Decision Making - Medical Decision Making 03/03/19 20:57 73 y/o M hx of HTN , DM2 , COPD on O2 (2L) at home, COPD, past bleeding event Apr, 2018, presenting with epistasix. He has been bleeding intermitently for 1 week Workup cbc, cmp, coags Pack for 10 mins with Afrin and gauze with application of pressure. 03/03/19 21:02 direct pressure and afrin and gauze applied for 10 mins. no more active bleeding. pt ambulated around ED and blew his nose. no bleeding observed Discharged with follow up to PCP and ENT doctors 03/03/19 22:12 Discharge - Discharge Information Problems reviewed: Yes Clinical Impression/Diagnosis: Nasal hemorrhage Condition: Stable Disposition: HOME - Admission No - Follow up/Referral Referrals: Elizabet Wheat MD [Primary Care Provider] - Ronni Arriaga MD [Staff Physician] - Abdulkadir Castellano MD [Staff Physician] - - Patient Discharge Instructions Patient Printed Discharge Instructions: DI for Nosebleed Additional Instructions: you were seen for nose bleeding. you are no longer actively bleeding Make sure you follow up with your primary care provider Tran Wheat, and the ear , nose and throat specialist, we have enclosed information for them in this packet return to the ER if bleeding starts and is not stopped by firm direct pressure, you develop fevers, chills, headaches or any other concerning symptoms. - Post Discharge Activity
--- NOTE | 2019-03-03 20:55 | PDOC ---
Documentation entered by Jian Cuellar SCRIBE, acting as scribe for Bruna Youssef DO. Bruna Youssef DO: This documentation has been prepared by the Polo glover Xhesika, SCRIBE, under my direction and personally reviewed by me in its entirety. I confirm that the documentation accurately reflects all work, treatment, procedures, and medical decision making performed by me. Attending Attestation - Resident Resident Name: Tiffanie Montilla - ED Attending Attestation I have performed the following: I have examined & evaluated the patient, The case was reviewed & discussed with the resident, I agree w/resident's findings & plan, Exceptions are as noted - HPI HPI: 03/03/19 20:26 The patient is a 73 year old male with a significant PMH of HTN, COPD, DM, and 2L O2 at home who presents to the emergency department with 3 episodes of L nostril epistaxis since this afternoon (last episode at 5pm). Patient states he has been endorsing nasal bleeding intermittently for the past week, worsening when coughing. Patient states he endorsed a similar episode of epistaxis on April 2018, however, the the bleeding stopped after stuffing his nose with tissues unlike this time. The patient denies cp, shortness of breath, dizziness, fever, chills, cough, nausea, vomiting, diarrhea and constipation. Allergies: Penicillins Past surgical history: hernia repair x 2 - Physicial Exam PE: 03/03/19 20:56 GENERAL: Awake, alert, and fully oriented, in no acute distress EYES: PERRLA, EOMI, sclera anicteric, conjunctiva clear ENT: + small amount of dred blood in L anterior nare. Right nare clear. No active bleeding. + upper dentures. oropharynx clear without exudates. Moist mucosa LUNGS: Breath sounds equal, clear to auscultation bilaterally. No wheezes, and no crackles HEART: Regular rate and rhythm, normal S1 and S2, no murmurs, rubs or gallops ABDOMEN: Soft, nontender, normoactive bowel sounds. No guarding, no rebound. No masses EXTREMITIES: + trace edema at ankles. Normal range of motion. No clubbing or cyanosis. No cords, erythema, or tenderness NEUROLOGICAL: Cranial nerves II through XII grossly intact. Normal speech, normal gait SKIN: Warm, Dry, normal turgor, no rashes or lesions noted. - Medical Decision Making 03/03/19 20:54 I, Dr. Bruna Youssef, DO, attest that this document has been prepared under my direction and personally reviewed by me in its entirety. I further attest, that it accurately reflects all work, treatment, procedures and medical decision -making performed by me. a/p: 73yo male with L nare bleeding today -pt on baby asa -3 episodes of L nare bleeding -no active bleeding at this time -pt with dried blood along anterior nare on the L - no definite site to cauterize -will send labs given amount of bleeding today -will put afrin on cotton in the nare and hold pressure -after will ambulate and if no bleeding will dc to home with stable labs and follow up with ENT 03/03/19 21:17 labs reviewed and stable 03/03/19 21:52 no active bleeding in the ER will ambulate pt if no bleeding stable for dc to home and follow up with ENT 03/03/19 21:58 pt ambulatory in the ED without active bleeding stable for dc to home
[2019-03-03 21:09] LABS: INR 1.03 (0.83-1.09); PROTHROMBIN TIME (PATIENT) 12.1 SEC (9.7-13.0)
[2019-03-03 21:12] LABS: ACTIVATED PTT 31.2 SECONDS (25.2-36.5)
[2019-03-03 21:17] LABS: ALBUMIN 3.7 g/dl (3.4-5.0); BILIRUBIN,TOTAL 0.3 mg/dL (0.2-1); CALCIUM 8.9 mg/dL (8.5-10.1); POTASSIUM 4.2 mmol/L (3.5-5.1); TOT PROT 7.8 g/dl (6.4-8.2)
== END 2019-03-03 22:35 | disposition home or self-care (01) ==
LOC: JER 19:04
PROC: 2Y41X5Z Packing of Nasal Region using Packing Material (ICD-10-PCS; principal; 2019-03-03)
DX: R04.0 Epistaxis (principal); I10 Essential (primary) hypertension; E78.00 Pure hypercholesterolemia, unspecified; E11.9 Type 2 diabetes mellitus without complications; J44.9 Chronic obstructive pulmonary disease, unspecified; Z99.81 Dependence on supplemental oxygen; Z79.82 Long term (current) use of aspirin; Z79.84 Long term (current) use of oral hypoglycemic drugs
CPT/HCPCS: 30901-25; 36415; 80053; 85025; 85610; 85730; 99282-25

== ENCOUNTER → 2019-07-14 | Day surgery (SDC) | payer BC, OTHER ==
[2019-07-14 11:20] LABS: BASO % 0.6 % (0-2.0); EOS % 4.2 % (0-4.5); HEMATOCRIT 45.5 % (35.4-49); HEMOGLOBIN 15.3 GM/dL (11.7-16.9); LYMPH % 19.4 % (8-40); MCH 30.4 pg (25.7-33.7); MCHC 33.6 g/dl (32.0-35.9); MEAN CELL VOLUME 90.7 fl (80-96); MEAN PLT VOLUME 10.5 fl (7.5-11.1); MONO % 13.6 % (3.8-10.2); NEUT % 62.2 % (42.8-82.8); PLATELET COUNT 199 K/MM3 (134-434); RBC 5.02 M/mm3 (4.00-5.60); RDW 15.2 % (11.9-15.9); WHITE BLOOD COUNT 7.2 K/mm3 (4.0-10.0)
[2019-07-14 12:16] LABS: IRON SERUM 89 ug/dL (50-175); TOTAL IRON BINDING CAPACITY 324 ug/dL (250-450)
== END | disposition home or self-care (01) ==
LOC: JONCNONCHE 05:42 → EDSTATUS 18:03
PROVIDERS: ATTEND Internal Medicine Hematology & Oncology
DX: Z53.8 Procedure and treatment not carried out for other reasons (principal)
CPT/HCPCS: 36415; 82607; 82728; 83540; 83550; 85025

== ENCOUNTER 2020-08-04 11:40 | Inpatient (IN) | payer OTHER ==
[2020-08-04] MEDS ORDERED: DEXAMETHASONE SOD PHOSPHATE 10 MG/1 ML VIAL ONE (12:03)
[2020-08-04 12:35] LABS: BASO % 0.8 % (0-2.0); EOS % 1.7 % (0-4.5); HEMATOCRIT 32.6 % (35.4-49); HEMOGLOBIN 10.2 GM/dL (11.7-16.9); LYMPH % 14.3 % (8-40); MCH 23.4 pg (25.7-33.7); MCHC 31.2 g/dl (32.0-35.9); MEAN CELL VOLUME 75.1 fl (80-96); MEAN PLT VOLUME 10.4 fl (7.5-11.1); MONO % 9.1 % (3.8-10.2); NEUT % 74.1 % (42.8-82.8); PLATELET COUNT 277 K/MM3 (134-434); RBC 4.34 M/mm3 (4.00-5.60); RDW 19.6 % (11.9-15.9); WHITE BLOOD COUNT 9.2 K/mm3 (4.0-10.0)
[2020-08-04 13:00] LABS: POTASSIUM 4.9 mmol/L (3.5-5.1)
[2020-08-04 13:01] LABS: CALCIUM 9.2 mg/dL (8.5-10.1)
[2020-08-04 13:02] LABS: ALBUMIN 3.5 g/dl (3.4-5.0); BLOOD UREA NITROGEN 27.6 mg/dL (7-18)
[2020-08-04 13:05] LABS: CREATININE 1.3 mg/dL (0.55-1.3)
[2020-08-04 13:07] LABS: BILIRUBIN,TOTAL 0.3 mg/dL (0.2-1); TOT PROT 8.3 g/dl (6.4-8.2)
[2020-08-04 13:09] LABS: N-TERMINAL BNP 716.7 pg/ml (5-125)
[2020-08-04] MEDS ORDERED: ASPIRIN 325 MG TABLET PO ONE (13:52)
[2020-08-04] MEDS ORDERED: ASPIRIN 325 MG ENTERIC COATED TABLET (FP) ONE (13:55)
[2020-08-04] MEDS: HEPARIN NA (PORCINE) 5,000 UNITS/ML 1ML VIAL SQ SCH (21:28)
[2020-08-04] MEDS: RANOLAZINE E.R. 500 MG TABLET (FP) PO SCH (21:28)
[2020-08-04] MEDS: INSULIN SLIDING SCALE (NOVOLOG) 1 VIAL SQ SCH (21:35)
[2020-08-04] MEDS ORDERED: ATORVASTATIN CA 10 MG TABLET (FP) PO SCH (22:00)
[2020-08-05 01:36] VITALS: BMI 22.3
[2020-08-05 06:16] LABS: POTASSIUM 4.7 mmol/L (3.5-5.1)
[2020-08-05] MEDS: INSULIN SLIDING SCALE (NOVOLOG) 1 VIAL SQ SCH ×5 (06:16→21:39)
[2020-08-05] MEDS: LEVOTHYROXINE NA 112 MCG TABLET (FP) PO SCH (06:17)
[2020-08-05] MEDS: HEPARIN NA (PORCINE) 5,000 UNITS/ML 1ML VIAL SQ SCH ×4 (06:17→21:33)
[2020-08-05 06:19] LABS: CALCIUM 8.9 mg/dL (8.5-10.1)
[2020-08-05 06:20] LABS: ALBUMIN 3.2 g/dl (3.4-5.0); MAGNESIUM 2.3 mg/dL (1.8-2.4)
[2020-08-05 06:23] LABS: BASO % 0.7 % (0-2.0); CREATININE 1.1 mg/dL (0.55-1.3); EOS % 1.2 % (0-4.5); HEMATOCRIT 31.5 % (35.4-49); LYMPH % 18.4 % (8-40); MCH 23.7 pg (25.7-33.7); MCHC 31.7 g/dl (32.0-35.9); MEAN PLT VOLUME 10.1 fl (7.5-11.1); MONO % 10.9 % (3.8-10.2); NEUT % 68.8 % (42.8-82.8); PHOSPHOROUS 4.3 mg/dL (2.5-4.9); PLATELET COUNT 295 K/MM3 (134-434); RDW 19.6 % (11.9-15.9); WHITE BLOOD COUNT 9.2 K/mm3 (4.0-10.0)
[2020-08-05 06:24] LABS: BILIRUBIN,TOTAL 0.2 mg/dL (0.2-1); TOT PROT 7.6 g/dl (6.4-8.2)
[2020-08-05 07:39] LABS: INR 1.12 (0.83-1.09); PROTHROMBIN TIME (PATIENT) 13.7 SEC (9.7-13.0)
[2020-08-05 07:42] LABS: ACTIVATED PTT 25.8 SECONDS (25.2-36.5)
[2020-08-05] MEDS: RANOLAZINE E.R. 500 MG TABLET (FP) PO SCH ×2 (09:34→21:33)
[2020-08-05] MEDS: FUROSEMIDE 40 MG TABLET (FP) PO SCH (09:34)
[2020-08-05] MEDS: FINASTERIDE 5 MG TABLET (FP) PO SCH (09:34)
[2020-08-05] MEDS: HYDROCHLOROTHIAZIDE 12.5 MG CAPSULE (FP) PO SCH (09:34)
[2020-08-05] MEDS: MEMANTINE HCL 5 MG TABLET (UD) PO SCH (09:35)
[2020-08-05] MEDS: LOSARTAN POTASSIUM 25 MG TABLET PO SCH (09:35)
[2020-08-05] MEDS: amLODIPine BESYLATE 5 MG TABLET (FP) PO SCH (09:35)
[2020-08-05] MEDS: TAMSULOSIN HCL 0.4 MG CAP PO SCH (09:35)
[2020-08-05] MEDS: CLOPIDOGREL BISULFATE 75 MG TABLET (FP) PO SCH (09:44)
[2020-08-05] MEDS: ASPIRIN 81 MG CHEWABLE TABLETS PO SCH (09:45)
[2020-08-05] MEDS ORDERED: ENOXAPARIN NA (PORCINE) 40 MG/0.4 ML DISP.SYRIN SQ SCH (10:00)
[2020-08-05 10:04] LABS: RETICULOCYTES 1.48 % (0.5-1.5)
[2020-08-05] MEDS ORDERED: OXYMETAZOLINE 0.05% NASAL SOLUTION 15 ML BOTTLE NS PRN (18:14)
[2020-08-05] MEDS: ATORVASTATIN CA 20 MG TABLET (FP) PO SCH (21:33)
[2020-08-05] MEDS: FERROUS SO4 325 MG TABLET (FP) PO SCH (21:33)
[2020-08-06] MEDS: HEPARIN NA (PORCINE) 5,000 UNITS/ML 1ML VIAL SQ SCH ×3 (06:42→21:22)
[2020-08-06] MEDS: INSULIN SLIDING SCALE (NOVOLOG) 1 VIAL SQ SCH ×4 (06:43→21:29)
[2020-08-06] MEDS: LEVOTHYROXINE NA 112 MCG TABLET (FP) PO SCH (06:43)
[2020-08-06 07:55] LABS: HEMATOCRIT 31.2 % (35.4-49); HEMOGLOBIN 9.9 GM/dL (11.7-16.9); MCH 23.8 pg (25.7-33.7); MCHC 31.7 g/dl (32.0-35.9); MEAN CELL VOLUME 74.8 fl (80-96); MEAN PLT VOLUME 10.7 fl (7.5-11.1); PLATELET COUNT 290 K/MM3 (134-434); RBC 4.17 M/mm3 (4.00-5.60); RDW 19.8 % (11.9-15.9); WHITE BLOOD COUNT 9.4 K/mm3 (4.0-10.0)
[2020-08-06 08:03] LABS: POTASSIUM 4.7 mmol/L (3.5-5.1)
[2020-08-06 08:12] LABS: BLOOD UREA NITROGEN 31.6 mg/dL (7-18)
[2020-08-06 08:15] LABS: CREATININE 1.3 mg/dL (0.55-1.3)
[2020-08-06] MEDS: TAMSULOSIN HCL 0.4 MG CAP PO SCH (09:57)
[2020-08-06] MEDS: LOSARTAN POTASSIUM 25 MG TABLET PO SCH (09:58)
[2020-08-06] MEDS: ASPIRIN 81 MG CHEWABLE TABLETS PO SCH (09:58)
[2020-08-06] MEDS: RANOLAZINE E.R. 500 MG TABLET (FP) PO SCH ×2 (09:58→21:23)
[2020-08-06] MEDS: amLODIPine BESYLATE 5 MG TABLET (FP) PO SCH (09:58)
[2020-08-06] MEDS: FUROSEMIDE 40 MG TABLET (FP) PO SCH (09:58)
[2020-08-06] MEDS: MEMANTINE HCL 5 MG TABLET (UD) PO SCH (09:58)
[2020-08-06] MEDS: FERROUS SO4 325 MG TABLET (FP) PO SCH ×2 (09:58→21:21)
[2020-08-06] MEDS: FINASTERIDE 5 MG TABLET (FP) PO SCH (09:58)
[2020-08-06] MEDS: HYDROCHLOROTHIAZIDE 12.5 MG CAPSULE (FP) PO SCH (09:58)
[2020-08-06] MEDS: CLOPIDOGREL BISULFATE 75 MG TABLET (FP) PO SCH (09:58)
[2020-08-06] MEDS ORDERED: SODIUM CHLORIDE 500 ML IV STA (15:04)
[2020-08-06] MEDS ORDERED: POLYETHYLENE GLYCOL 3350 119 GM BTL PO ONE (18:43)
[2020-08-06] MEDS ORDERED: DOCUSATE SODIUM 100 MG CAPSULE (FP) PO ONE (18:43)
[2020-08-06] MEDS: SENNOSIDES 8.6MG TABLET (FP) PO SCH (21:21)
[2020-08-06] MEDS: ATORVASTATIN CA 20 MG TABLET (FP) PO SCH (21:22)
[2020-08-07] MEDS: INSULIN SLIDING SCALE (NOVOLOG) 1 VIAL SQ SCH ×4 (06:09→23:00)
[2020-08-07] MEDS: LEVOTHYROXINE NA 112 MCG TABLET (FP) PO SCH (06:39)
[2020-08-07] MEDS: HEPARIN NA (PORCINE) 5,000 UNITS/ML 1ML VIAL SQ SCH ×3 (06:39→23:00)
[2020-08-07 08:00] LABS: HEMATOCRIT 30.2 % (35.4-49); HEMOGLOBIN 9.5 GM/dL (11.7-16.9); MCH 23.6 pg (25.7-33.7); MCHC 31.4 g/dl (32.0-35.9); MEAN PLT VOLUME 10.5 fl (7.5-11.1); PLATELET COUNT 271 K/MM3 (134-434); RBC 4.03 M/mm3 (4.00-5.60); RDW 20.1 % (11.9-15.9); WHITE BLOOD COUNT 8.6 K/mm3 (4.0-10.0)
[2020-08-07 08:13] LABS: POTASSIUM 4.5 mmol/L (3.5-5.1)
[2020-08-07 08:16] LABS: CALCIUM 8.7 mg/dL (8.5-10.1)
[2020-08-07 08:17] LABS: ALBUMIN 3.1 g/dl (3.4-5.0); BLOOD UREA NITROGEN 28.6 mg/dL (7-18); MAGNESIUM 2.1 mg/dL (1.8-2.4)
[2020-08-07 08:20] LABS: CREATININE 1.2 mg/dL (0.55-1.3)
[2020-08-07 08:21] LABS: PHOSPHOROUS 3.2 mg/dL (2.5-4.9)
[2020-08-07 08:22] LABS: BILIRUBIN,TOTAL 0.2 mg/dL (0.2-1)
[2020-08-07 08:23] LABS: TOT PROT 7.5 g/dl (6.4-8.2)
[2020-08-07] MEDS ORDERED: FUROSEMIDE 20 MG TABLET (FP) PO SCH (09:44)
[2020-08-07] MEDS: TAMSULOSIN HCL 0.4 MG CAP PO SCH (09:52)
[2020-08-07] MEDS: LOSARTAN POTASSIUM 25 MG TABLET PO SCH (09:52)
[2020-08-07] MEDS: RANOLAZINE E.R. 500 MG TABLET (FP) PO SCH ×2 (09:52→23:00)
[2020-08-07] MEDS: FINASTERIDE 5 MG TABLET (FP) PO SCH (09:52)
[2020-08-07] MEDS: CLOPIDOGREL BISULFATE 75 MG TABLET (FP) PO SCH (09:52)
[2020-08-07] MEDS: FERROUS SO4 325 MG TABLET (FP) PO SCH ×2 (09:52→22:59)
[2020-08-07] MEDS: MEMANTINE HCL 5 MG TABLET (UD) PO SCH (09:52)
[2020-08-07] MEDS: ATORVASTATIN CA 20 MG TABLET (FP) PO SCH (23:00)
[2020-08-07] MEDS: SENNOSIDES 8.6MG TABLET (FP) PO SCH (23:00)
[2020-08-08 02:41] VITALS: BP 110/69; PULSE 84; TEMP 98.4
[2020-08-08] MEDS: INSULIN SLIDING SCALE (NOVOLOG) 1 VIAL SQ SCH ×2 (06:32→11:49)
[2020-08-08] MEDS: HEPARIN NA (PORCINE) 5,000 UNITS/ML 1ML VIAL SQ SCH ×2 (06:38→13:42)
[2020-08-08] MEDS: LEVOTHYROXINE NA 112 MCG TABLET (FP) PO SCH (06:38)
[2020-08-08 07:22] LABS: HEMATOCRIT 29.7 % (35.4-49); HEMOGLOBIN 9.5 GM/dL (11.7-16.9); MCH 23.6 pg (25.7-33.7); MEAN CELL VOLUME 73.9 fl (80-96); PLATELET COUNT 259 K/MM3 (134-434); RBC 4.03 M/mm3 (4.00-5.60); RDW 19.4 % (11.9-15.9); WHITE BLOOD COUNT 8.8 K/mm3 (4.0-10.0)
[2020-08-08 07:48] LABS: POTASSIUM 4.6 mmol/L (3.5-5.1)
[2020-08-08 07:56] LABS: ALBUMIN 3.1 g/dl (3.4-5.0); BLOOD UREA NITROGEN 21.1 mg/dL (7-18)
[2020-08-08 07:57] LABS: CALCIUM 8.7 mg/dL (8.5-10.1)
[2020-08-08 07:59] LABS: CREATININE 0.9 mg/dL (0.55-1.3)
[2020-08-08 08:01] LABS: BILIRUBIN,TOTAL 0.3 mg/dL (0.2-1); TOT PROT 7.3 g/dl (6.4-8.2)
[2020-08-08] MEDS: TAMSULOSIN HCL 0.4 MG CAP PO SCH (10:01)
[2020-08-08] MEDS: MEMANTINE HCL 5 MG TABLET (UD) PO SCH (10:01)
[2020-08-08] MEDS: CLOPIDOGREL BISULFATE 75 MG TABLET (FP) PO SCH (10:01)
[2020-08-08] MEDS: FINASTERIDE 5 MG TABLET (FP) PO SCH (10:01)
[2020-08-08] MEDS: FERROUS SO4 325 MG TABLET (FP) PO SCH (10:01)
[2020-08-08] MEDS: LOSARTAN POTASSIUM 25 MG TABLET PO SCH ×2 (10:01→10:08)
[2020-08-08] MEDS: RANOLAZINE E.R. 500 MG TABLET (FP) PO SCH (10:02)
== END 2020-08-08 17:16 | disposition home or self-care (01) | DRG 313 ==
LOC: JER 11:40 → JERBED 13:18 → OBSVTOIN 17:44 → J4W 21:02
PROVIDERS: ADMIT Internal Medicine
DX: R07.89 Other chest pain (principal); J44.1 Chronic obstructive pulmonary disease with (acute) exacerbation; I24.8 Other forms of acute ischemic heart disease; J84.9 Interstitial pulmonary disease, unspecified; I10 Essential (primary) hypertension; E78.5 Hyperlipidemia, unspecified; J44.9 Chronic obstructive pulmonary disease, unspecified; E11.9 Type 2 diabetes mellitus without complications; I25.10 Atherosclerotic heart disease of native coronary artery without angina pectoris; I34.0 Nonrheumatic mitral (valve) insufficiency; D64.9 Anemia, unspecified; K58.9 Irritable bowel syndrome, unspecified; I65.29 Occlusion and stenosis of unspecified carotid artery; N31.2 Flaccid neuropathic bladder, not elsewhere classified; I25.119 Atherosclerotic heart disease of native coronary artery with unspecified angina pectoris; D50.0 Iron deficiency anemia secondary to blood loss (chronic); R04.0 Epistaxis; I77.819 Aortic ectasia, unspecified site; Z99.81 Dependence on supplemental oxygen; Z95.5 Presence of coronary angioplasty implant and graft
CPT/HCPCS: 36415; 71045-TC-FY; 80048; 80053; 80061; 82550; 82728; 82962; 83036; 83540; 83550; 83721; 83735; 83880; 84100; 84443; 84484; 85025; 85027; 85045; 85610; 85730; 86850; 86900; 86901; 93005; 93010; 93306-TC; 97116-GP; 97161-GP; 99285-25; C9803; G0378; J1644; U0003